=== PATIENT | female | born 1955 | race Caucasian/White ===

== ENCOUNTER 2018-07-27 00:31 | Outpatient (CLI) | payer OTHER, SELFPAY ==
--- NOTE | 2018-07-27 12:52 | DI.MAMMO_ITS ---
SYMPTOM/DIAGNOSIS: SCREENING, Z12.31 MAMMOGRAMS: Mammograms were interpreted according to the usual protocol including computer analysis with CAD system, tomosynthesis and C view imaging. Comparison with prior examinations. Breast density B. No masses or microcalcifications are seen. There is nothing to suggest malignancy. IMPRESSION: Negative mammogram. Routine screening is recommended. Category I. MQSA ASSESSMENT OF FINDINGS: Negative. Category 1. Patient will receive a letter notifying them of these results. BI-RADS category B. There are scattered areas of fibroglandular density.
== END 2018-07-27 00:51 ==
PROVIDERS: PCP Nurse Practitioner Family; Visit Provider Nurse Practitioner Family
DX: Z12.31 Encounter for screening mammogram for malignant neoplasm of breast (principal)
CPT/HCPCS: 77063; 77067

== ENCOUNTER 2019-04-06 10:54 | Outpatient (REF) | payer OTHER, SELFPAY ==
[2019-04-06 21:48] LABS: ALT 39 U/L (12-78); AST 15 U/L (15-37); Anion Gap 9.9 mmol/L (3-11); BUN 17 mg/dL (7-18); CO2 29.1 mmol/L (21.0-32.0); CREATININE 0.72 mg/dL (0.55-1.02); Calcium 10.4 mg/dL (8.5-10.1); Chloride 102 mmol/L (98-107); Glucose 77 mg/dL (70-100); Potassium 4.3 mmol/L (3.5-5.1); Sodium 141 mmol/L (136-145)
[2019-04-06 22:28] LABS: Calculated LDL 138; Cholesterol 220 mg/dL (50-200); HDL Cholesterol 50 mg/dL (40-60); Triglyceride 164 mg/dL (30-150)
== END 2019-04-06 11:14 ==
LOC: NCHCN 10:54
PROVIDERS: PCP Nurse Practitioner Family; Visit Provider Nurse Practitioner Family
DX: R53.83 Other fatigue (principal); E11.9 Type 2 diabetes mellitus without complications; I10 Essential (primary) hypertension; K30 Functional dyspepsia; F41.8 Other specified anxiety disorders; R60.0 Localized edema
CPT/HCPCS: 80048; 80061; 83721; 84450; 84460

== ENCOUNTER 2019-04-27 14:35 | Outpatient (REF) | payer OTHER, SELFPAY ==
[2019-04-27 22:09] LABS: Calcium 9.8 mg/dL (8.5-10.1)
== END 2019-04-27 14:55 ==
LOC: NCHCN 14:35
PROVIDERS: PCP Nurse Practitioner Family; Visit Provider Nurse Practitioner Family
DX: E83.52 Hypercalcemia (principal)
CPT/HCPCS: 82310

== ENCOUNTER 2019-09-07 01:43 | Outpatient (CLI) | payer OTHER, SELFPAY ==
--- NOTE | 2019-09-07 09:40 | NS.NUTBLAN_ITS ---
DESCRIPTION:? Amanda Medina presents for nutrition consult for diverticulitis and diabetes prevention/treatment.? She has history of gall bladder surgery as well.? Treated for hypertension, depression and sleep issues. Amanda states she doesn't know what to eat with the combination of diverticulosis versus diverticulitis and diabetes. Today she had cereal and milk; on work days she has 1 slice whole grain toast with [place] peanutbutter.? She often has a snack mid-morning; for lunch a salad until it seemed to cause her pain, or 1/2 sandwich.? Supper is less predictable with fast food, processed food when she doesn't have to cook a meal.? She drinks 1/2 gallon of water daily, minimum. Amanda describes PTSD from her childhood which she is now dealing with. She recognizes that she uses food to handle some of these symptoms. INTERVENTION:? Reviewed food treatment for diverticulosis versus diverticulitis with information sheets on fiber content of common food choices..? Used diabetes food guide to integrate?the foods that are appropriate for each condition. Discussed benefits of a healthy gut in relation to? probiotics encouraging cutting sugar, processed foods, increasing fruit and vegetables within guidelines for her current condition; increase fermented and active bacteria sources, especially yogurt. Discussed physical activity briefly. Discussed stress management at the moment; she is in counseling for PTSD.? Suggested the importance of this overweighs diabetes management at this time given she is around the 6.5 A1c range; acknowledging there will be time to work on this. PLAN:? Amanda will: follow fiber lists based on her symptoms; overall decrease sugar and processed food intake by planning her meals, using crock pot, adequate vegetable intake Amanda will consider walking 10 minutes at lunch when she can. She knows to be in touch as she wishes for ongoing support.
== END 2019-09-07 02:03 ==
PROVIDERS: PCP Nurse Practitioner Family; Visit Provider Dietitian, Registered
DX: K57.32 Diverticulitis of large intestine without perforation or abscess without bleeding (principal); Z71.3 Dietary counseling and surveillance; R73.03 Prediabetes
CPT/HCPCS: 97802

== ENCOUNTER 2019-11-24 02:25 | Outpatient (CLI) | payer OTHER, SELFPAY ==
--- NOTE | 2019-11-24 11:07 | DI.MAMMO_ITS ---
EXAM: MG MAMMO SCREENING CLINICAL HISTORY: SCREENING Z12.31, FAM HX BREAST CANCER Z80.3. TECHNIQUE: Bilateral full field digital CC and MLO mammographic images were obtained with 3D tomosyn thesis and utilizing computer aided detection (CAD). COMPARISON: Available for comparison. FINDINGS: Masses/Architectural Distortion: There is asymmetric breast tissue in the upper-outer quadrant of the left breast. Microcalcifications: No suspicious pleomorphic-type are seen. Skin Thickening/Nipple Retraction: None. IMPRESSION: 1. Asymmetric breast tissue in the upper-outer quadrant of the left breast. 2. This area should be further evaluated with spot compression views. Ultrasound may be indicated at that time. BI-RADS Cat 0 - Assessment Incomplete: Need additional imaging evaluation Breast Density - Category B - Scattered areas of fibroglandular density A negative radiographic report should not delay biopsy if a dominant or clinically suspicious mass is present. Up to ten percent of cancers are not identified on mammography. A negative report may reinforce clinical impression. Adenosis and dense breasts may obscure an underlying neoplasm. False positive reports average 6 to 10%. Patient will receive a letter notifying them of these results.
== END 2019-11-24 02:45 ==
PROVIDERS: PCP Nurse Practitioner Family; Visit Provider Nurse Practitioner Family
DX: Z12.31 Encounter for screening mammogram for malignant neoplasm of breast (principal); Z80.3 Family history of malignant neoplasm of breast; R92.8 Other abnormal and inconclusive findings on diagnostic imaging of breast
CPT/HCPCS: 77063; 77067

== ENCOUNTER 2019-12-02 02:20 | Outpatient (CLI) | payer OTHER, SELFPAY ==
--- NOTE | 2019-12-02 | DI.MAMMO_ITS ---
EXAM: MG MAMMO SCREEN CALL BACK UNI AND US LT BREAST LIMITED CLINICAL HISTORY: F/U MAMMO, ASYMMETRIC BREAST TISSUE UPPER OUTER QUAD LT BREAST. TECHNIQUE: Craniocaudal and mediolateral oblique Full Field Digital Mammography views of the left br east with Computer Aided Diagnosis followed by Tomosynthesis and left breast ultrasound. COMPARISON: US BREAST LT LIMITED from 12/02/2019 FINDINGS: Mammography/Tomosynthesis: Masses/Architectural Distortion: None seen. Microcalcifications: No suspicious pleomorphic-type are seen. Skin Thickening/Nipple Retraction: None. Left breast US: Echotexture: Normal appearance of the glandular tissue. Shadowing: No suspicious foci. Cyst: 2.6 x 1.9 x 3 mm cyst and 4 x 2.4 x 5 mm cyst at the 12 o'clock position. Solid lesions: 5 x 3 x 5 mm lymph node in the 12 o'clock position 5 centimeters from the nipple. No suspicious solid mass. Ductal dilation: None. IMPRESSION: 1. No evidence of malignancy is noted. 2. A six-month follow-up left mammogram is recommended for re-evaluation. BI-RADS Cat 3 - 6 month - Probably Benign Finding: Recommend follow-up mammography in 6 months Breast Density - Category B - Scattered areas of fibroglandular density The findings were discussed with the patient on the date of the examination. A negative radiographic report should not delay biopsy if a dominant or clinically suspicious mass is present. Up to ten percent of cancers are not identified on mammography. A negative report may reinforce clinical impression. Adenosis and dense breasts may obscure an underlying neoplasm. False positive reports average 6 to 10%. Patient will receive a letter notifying them of these results.
== END 2019-12-02 02:40 ==
PROVIDERS: PCP Nurse Practitioner Family; Visit Provider Nurse Practitioner Family
DX: Z12.31 Encounter for screening mammogram for malignant neoplasm of breast (principal); R92.8 Other abnormal and inconclusive findings on diagnostic imaging of breast; N60.12 Diffuse cystic mastopathy of left breast; R59.0 Localized enlarged lymph nodes
CPT/HCPCS: 76642; 77063; 77067

== ENCOUNTER 2020-06-09 03:58 | Outpatient (CLI) | payer OTHER, SELFPAY ==
--- NOTE | 2020-06-09 | DI.MAMMO_ITS ---
EXAM: MG MAMMO DIAGNOSTIC UNI CLINICAL HISTORY: F/U ABNL MAMMO, 6 MO F/U,R92.8. TECHNIQUE: Craniocaudal and mediolateral oblique Full Field Digital Mammography views of the left br east with Computer Aided Diagnosis followed by Tomosynthesis. COMPARISON: 2010 through 02 December 2019 FINDINGS: Mammography/Tomosynthesis: This is a six-month follow-up for questioned area of asymmetric density in the upper outer quadrant. Masses/Architectural Distortion: None seen. Microcalcifictions: No suspicious pleomorphic-type are seen. Skin Thickening/Nipple Retraction: None. IMPRESSION: 1. No evidence of malignancy is noted. 2. Bilateral screening should be resumed in 6 months.. 3. The findings were discussed with the patient on the date of the examination. BI-RADS Category 1 - Negative Breast Density - Category B - Scattered areas of fibroglandular density A negative radiographic report should not delay biopsy if a dominant or clinically suspicious mass is present. Up to ten percent of cancers are not identified on mammography. A negative report may reinforce clinical impression. Adenosis and dense breasts may obscure an underlying neoplasm. False positive reports average 6 to 10%. Patient will receive a letter notifying them of these results.
== END 2020-06-09 04:18 ==
PROVIDERS: PCP Nurse Practitioner Family; Visit Provider Nurse Practitioner Family
DX: R92.8 Other abnormal and inconclusive findings on diagnostic imaging of breast (principal); R92.2 Inconclusive mammogram
CPT/HCPCS: 77061; 77065; G0279

== ENCOUNTER 2020-09-22 01:59 | Outpatient (CLI) | payer MEDICARE, SELFPAY ==
[2020-09-22 07:30] LABS: Abs Immature Grans 0.02 10^3/uL (0.0-0.06); Absolute Eosinophil Count 0.31 10^3/uL (0.0-0.7); Absolute Lymphocyte Count 2.26 10^3/uL (1.2-3.4); Absolute Monocyte Count 0.59 10^3/uL (0.1-0.8); Absolute Neutrophil Count 3.41 10^3/uL (1.2-6.7); Basophils % 1.5; Eosinophils % 4.6; HCT 42.3 % (36.0-46.0); HGB 14.4 g/dL (11.2-15.7); Immature Grans % 0.3; Lymphocytes % 33.8; MCH 30.8 pg (27.0-33.0); MCV 90.6 fL (80-95); MPV 8.7 fL (8.0-11.0); Monocytes % 8.8; Nucleated RBC 0 %; Platelet Count 356 10^3/uL (130-400); RBC 4.67 10^6/uL (3.93-5.22); RDW 12.1 % (11.7-14.6); WBC 6.69 10^3/uL (4.4-10.8)
[2020-09-22 08:40] LABS: Iron 111 ug/dL (50-170); Total Iron Binding Capacity 325 ug/dL (250-450); Transferrin Sat 34 % (15-50)
[2020-09-22 08:46] LABS: TSH (W/Ref FT4) 0.98 uIU/mL (0.36-3.74)
[2020-09-22 08:48] LABS: Hemoglobin A1C 6.1 % (<5.7)
[2020-09-22 09:08] LABS: ALT 33 U/L (14-59); AST 13 U/L (15-37); Albumin 4.2 g/dL (3.4-5.0); Alkaline Phosphatase 73 U/L (46-116); Anion Gap 6.4 mmol/L (3-11); BUN 22 mg/dL (7-18); Bilirubin, Total 0.5 mg/dL (0.2-1.0); CO2 28.6 mmol/L (21.0-32.0); CREATININE 0.88 mg/dL (0.55-1.02); Calcium 9.3 mg/dL (8.5-10.1); Calculated LDL 141 mg/dL (<100); Chloride 102 mmol/L (98-107); Cholesterol 209 mg/dL (<200); Glucose 114 mg/dL (74-106); HDL Cholesterol 51 mg/dL (40-60); Magnesium 2.2 mg/dL (1.8-2.4); Potassium 4.3 mmol/L (3.5-5.1); Sodium 137 mmol/L (136-145); Total Protein 7.5 g/dL (6.4-8.2); Triglyceride 87 mg/dL (<150); Vitamin B12 758 pg/mL (193-986)
== END 2020-09-22 02:19 ==
PROVIDERS: PCP Nurse Practitioner Family; Visit Provider Nurse Practitioner Family
DX: R53.83 Other fatigue (principal); E11.9 Type 2 diabetes mellitus without complications; I10 Essential (primary) hypertension; Z86.39 Personal history of other endocrine, nutritional and metabolic disease; N95.1 Menopausal and female climacteric states
CPT/HCPCS: 36415; 80053; 80061; 82306; 82607; 83036; 83540; 83550; 83735; 84443; 85025

== ENCOUNTER 2020-10-26 12:17 | Outpatient (REF) | payer MEDICARE, SELFPAY ==
[2020-10-28 11:36] LABS: COVID-19 RT-PCR UVMMC Result Negative (Negative)
== END 2020-10-26 12:37 ==
LOC: NCHCN 12:17
PROVIDERS: PCP Nurse Practitioner Family; Visit Provider Nurse Practitioner Family
DX: Z20.828 Contact with and (suspected) exposure to other viral communicable diseases (principal)
CPT/HCPCS: U0003

== ENCOUNTER → 2021-01-19 14:23 | Outpatient (BNVA) | payer MEDICARE, SELFPAY | PROVIDERS: PCP Nurse Practitioner Family; Referring Provider Nurse Practitioner Family; Visit Provider Physical Therapy Assistant | DX: Z12.11 Encounter for screening for malignant neoplasm of colon (principal) ==

== ENCOUNTER 2021-02-09 02:23 | Outpatient (CLI) | payer MEDICARE, SELFPAY ==
[2021-02-09 11:26] LABS: Source Nasal/Nares
[2021-02-09 13:30] LABS: COVID-19 PCR Negative (Negative)
== END 2021-02-09 02:24 | disposition home or self-care (01) ==
PROVIDERS: PCP Nurse Practitioner Family; Visit Provider Surgery
DX: Z20.822 Contact with and (suspected) exposure to COVID-19 (principal)
CPT/HCPCS: 87635

== ENCOUNTER 2021-02-12 06:19 | Day surgery (SDC) | payer MEDICARE, SELFPAY ==
[2021-02-12 06:23] VITALS: BP 117/70; PULSE 71; RESP 16; TEMP 37.1; O2SAT 96
--- NOTE | 2021-02-12 06:37 | W.COLOREPORT ---
Date of service: 02/12/21 Time of Service: 07: Colonoscopy Report Date of procedure: 02/12/21 Pre-op diagnosis general: Colon Cancer Screening Post-op diagnosis procedure note: other (colorectal polyp, diverticulosis) Procedure: Colonoscopy with polypectomy Surgeon: Selin Saravia Anesthesia Type: General:No Airway (ASA 2/Sarah Hardin CRNA) Estimated blood loss (mL): 3 Pathology: other (AScending colon polyp) Complications: None Disposition: same day Indications: The patient is here for Colonoscopy pre-op. Her last screening was in 2007 and was unremarkable. She has no family history of colon cancer. She has not had any bowel habit changes. -Discussed colonoscopy bowel prep as well as the procedure. Discussed possible complications of the procedure to include bleeding, pain, perforation, missed small lesion/polyp, sore throat, aspiration and adverse reaction to the medications. Questions were answered to patient?s satisfaction. No guarantees were implied or given. Prep: Miralax/Dulcolax Procedure Start Time: :25 Procedure End Time: :55 Retraction Time: 16 minutes Findings: One sessile polyp in the ascending colon <1 cm in size High-diverticulosis Procedure Description: After informed consent was obtained the patient was taken to the procedure room and placed in a left decubitous position. Monitors were applied and a time out was done. The patients name, date of , procedure, allergies to medications and metal in their body was reviewed. The patient was then sedated. Once sedated and comfortable a rectal exam was done. External exam was normal. Internal exam revealed a decreased sphincter tone and no palpable masses. The scope was then introduced and retro-flexed. No internal hemorrhoids, polyps or masses were identified on retro-flexion. The scope was then advanced to the cecum without difficulty. The patient did become bradycardic and so she was given robinal and atropine. The ileocecal valve and appendiceal orifice were identified. The prep was good. The scope was then slowly retracted over 16 minutes back into the rectum. Polyps were removed with cold forceps in the ascending colon. There was high- diverticulosis noted. The scope was removed and the patient was woken up and taken back to Same day surgery in stable condition. The patient tolerated the procedure well and there were no immediate complications. Follow up: The patient should follow up in 5 years unless they develop changes in bowel habits or other new gastrointestinal complaints.
--- NOTE | 2021-02-12 06:38 | W.PM.DSUDISC ---
Discharge Plan Disposition Patient Disposition: HOME Condition: Good Discharge Details Reason For Visit: Colonoscopy Attending Provider: Selin Saravia Primary Care Provider: Haydee Lr Home Meds and New Rx's Prescriptions: Continued losartan 100 MG tablet 100 mg PO DAILY RF: 0 bupropion HCl [Wellbutrin SR] 100 MG tablet extended release 12 hr 100 mg PO DAILY RF: 0 aspirin [Adult Low Dose Aspirin] 81 mg tablet,delayed release (DR/EC) 81 mg PO DAILY RF: 0 cholecalciferol (vitamin D3) 10,000 unit capsule 10,000 unit PO DAILY RF: 0 loratadine [Claritin] 10 mg tablet 10 mg PO DAILY RF: 0 zolpidem [Ambien] 5 mg tablet 5 mg PO QHS PRNRF: 0 spironolactone [Aldactone] 50 mg tablet 50 mg PO DAILY RF: 0 fluticasone propionate 50 mcg/actuation spray,suspension 2 spray NICHOLAS DAILY RF: 0 ascorbate calcium (vitamin C) 500 mg tablet 500 mg PO DAILY RF: 0 benzonatate [Tessalon Perles] 100 mg capsule 100 mg PO TID RF: 0 diltiazem HCl 300 MG capsule,extended release 24hr 240 mg PO DAILY RF: 0 albuterol sulfate 8.5 GM HFA aerosol inhaler 2 puff Inhalation Q4H PRN PRNRF: 0 fluoxetine [Prozac] 10 mg capsule 10 mg PO DAILY RF: 0 Discontinued bisacodyl [Dulcolax (bisacodyl)] 5 mg tablet,delayed release (DR/EC) 5 mg PO ONCE Qty: 4 RF: 0 polyethylene glycol 3350 17 gram/dose powder 238 g PO ONCE Qty: 238 RF: 0 Discharge Instructions Instructions: Diverticulosis (DC), Colorectal Polyps (DC) Additional Instructions: Findings: 1 polyp mild diverticulosis Follow up: 5 years Please call if you develop: fevers >101.5 Nausea or Vomiting Abdominal pain that is not transient DAY SURGERY UNIT POST ENDOSCOPY INSTRUCTIONS 1. Because there will be medication in your system for the next 24 hours, you may feel a little sleepy. Your coordination will be affected. Therefore: a. Do not drive or operate dangerous equipment for 24 hours. b. Do not drink alcohol beverages for 24 hours (not even beer). c. Plan to go home and rest for the day. 2. Generally there are no restrictions on your activity after a day or so has gone by, but you may feel a bit fatigued for a few days. 3 After you arrive home you may have a light meal and return to a normal diet as you can tolerate it without feeling sick to your stomach. 4. After surgery, you may feel pain or discomfort. This should be only transient, but if it persists please contact your doctor. 5. If there are any questions regarding the findings of your procedure, please feel free to contact your doctor. 6. If you are unable to contact your doctor with a problem, contact the hospital at [phone]. 7. Continue all your regular medications unless directed otherwise. I understand the above instructions and have no questions. Signature of Patient or Responsible Adult Escort Date/Time Name of Responsible Adult Escort Signature of Nurse Date/Time Activity:: Activity as Tolerated Diet:: High Fiber diet Discharge Orders Discharge Orders: Discharge Order (Routine); Ordered 02/12/21 Ordered By: Selin Saravia
--- NOTE | 2021-02-12 06:46 | W.ANESPRE ---
Anesthesia Assessment and Plan Anesthesia History Personal History: PONV Family History: No Family History of Anesthesia Complications Exercise Tolerance Exercise Tolerance: Metabolic Equivalents>4 Pertinent Negatives Pertinent Negatives: No Major Cardiovascular Symptoms or Complaints Cardiac & Pulmonary Exam Cardiac Exam: Normal S1/S2 Heart Sounds Pulmonary Exam: Clear Bilateral Breath Sounds Airway Exam Known Difficult Airway: No Mallampati Class: 4 Mouth Opening: Normal (> 3cm) Thyromental Distance: Greater than 3 cm Neck Range of Motion: Full ROM Neck Circumference: Thick Teeth Condition: Normal Dentition ASA Classification ASA Score: ASA 2 ASA Emergency: No NPO Status NPO Status: NPO Clears >2 hours, Solids >8 hours Status Status: Not Per Patient Anesthesia Plan Anesthesia Technique: General Anesthesia Airway Planned: Natural Airway Monitors Used: Standard Monitors Imaging and Studies Imaging and Studies Pulmonary Function Summary Isolated mildly elevated diffusion capacity. This can be seen in early developing asthma, therefore if the diagnosis of asthma is in question proceeding with methacholine challenge testing may prove to be useful. 09/15/17 General Info Date of Service This is a Shared Provider Document. All providers who document on this will be required to sign document once completed. Please Communicate with Team Date Performed: 02/12/21 Height: 4 ft 11.84 in Weight: 79.4 kg Body Mass Index (BMI): 34.3 Surgical Procedure: Operation Date: 02/12/21 07:35 Proposed Procedures Side Surgeon meli Saravia MD Vital Signs and Lab Results Vital Signs Most Recent Vital Signs in EMR: Most Recent Vital Signs Temp Pulse Resp BP Pulse Ox 37.1 C 71 16 117/70 96 02/12/21 06:23 02/12/21 06:23 02/12/21 06:23 02/12/21 06:23 02/12/21 06:23 Point of Care Results Nursing Point of Care Results: No Data to Display Lab Results Blood Type / Crossmatch: No Data to Display Complete Blood Count: White Blood Count 6.69 10^3/uL (4.4-10.8) 09/22/20 07:21 09/22/20 Red Blood Count 4.67 10^6/uL (3.93-5.22) 09/22/20 07:21 09/22/20 Hemoglobin 14.4 g/dL (11.2-15.7) 09/22/20 07:21 09/22/20 Hematocrit 42.3 % (36.0-46.0) 09/22/20 07:21 09/22/20 Platelet Count 356 10^3/uL (130-400) 09/22/20 07:21 09/22/20 Complete Metabolic Panel: Sodium Level 137 mmol/L (136-145) 09/22/20 07:21 09/22/20 Potassium Level 4.3 mmol/L (3.5-5.1) 09/22/20 07:21 09/22/20 Chloride Level 102 mmol/L (98-107) 09/22/20 07:21 09/22/20 Carbon Dioxide Level 28.6 mmol/L (21.0-32.0) 09/22/20 07:21 09/22/20 Blood Urea Nitrogen 22 mg/dL (7-18) H 09/22/20 07:21 09/22/20 Creatinine 0.88 mg/dL (0.55-1.02) 09/22/20 07:21 09/22/20 Magnesium Level 2.2 mg/dL (1.8-2.4) 09/22/20 07:21 09/22/20 Calcium Level 9.3 mg/dL (8.5-10.1) 09/22/20 07:21 09/22/20 Albumin 4.2 g/dL (3.4-5.0) 09/22/20 07:21 09/22/20 Glucose Level 114 mg/dL (74-106) H 09/22/20 07:21 09/22/20 Hemoglobin A1c 6.1 % (<5.7) H 09/22/20 07:21 09/22/20 C-Reactive Protein 0.60 mg/dL (0.0-0.3) H 04/05/17 09:47 04/05/17 Liver Function Panel: Alanine Aminotransferase (ALT/SGPT) 33 U/L (14-59) 09/22/20 07:21 09/22/20 Aspartate Amino Transf (AST/SGOT) 13 U/L (15-37) L 09/22/20 07:21 09/22/20 Coagulation Panel: No Data to Display Cardiac Panel: Troponin I < 0.04 ng/mL (0.00-0.06) 10/05/13 18:35 10/05/13 Arterial Blood Gas: No Data to Display Venous Blood Gas: No Data to Display Pancreas Panel: No Data to Display Thyroid Panel: Thyroid Stimulating Hormone (TSH) 0.98 uIU/mL (0.36-3.74) 09/22/20 07:21 09/22/20 Infectious Disease: Coronavirus (COVID-19)(PCR) Negative (Negative) 02/09/21 09:55 02/09/21 Coronavirus 2019 Source Nasal/nares 02/09/21 09:55 02/09/21 Blood Cultures: Blood Culture Toxicology Panel: No Data to Display Panel: No Data to Display PFSH Medical History Allergic rhinitis Ankle edema Anxiety associated with depression Apnea, sleep Asthma BMI 35.0-35.9,adult Diabetes mellitus Diverticulitis Dyspepsia Dysthymia has used Wellbutrin for years. Family history of breast cancer Hypercalcemia Hypertension Malaise and fatigue Osteoarthritis of carpometacarpal (CMC) joint of left thumb Psoriasis PTSD (post-traumatic stress disorder) Syncope Vaginal atrophy Vitiligo Surgical History Abdominal hysterectomy (~1960) for uterine fibroids. with ovarian conservation. Dr. Hansen. section 1979 Dilation and curettage History of cataract extraction History of hysterectomy Social History (Updated 01/22/21 @ 10:14 by ALIX Scales) Smoking/Tobacco Use Status: Never Smoking risk assessment performed?: Yes Alcohol Intake: current Alcohol Intake frequency: holidays/special occasions only Drug use: Never Substance use type: does not use Current gender identity: female Do you feel safe at home: Yes Do you feel safe in your relationship?: Yes Meds Allergies and Home Medications Allergies Allergy/AdvReac Type Severity Reaction Status Date / Time aripiprazole [From Abilify] Allergy Severe Syncope Unverified 02/09/21 08:04 and hypotension Penicillins Allergy Severe seizures Unverified 02/09/21 08:04 Current Visit Medication Generic Name Dose Route Start Last Admin Trade Name Freq PRN Reason Stop Dose Admin Hyoscyamine Sulfate 0.125 mg 02/12/21 06:40 Hyoscyamine 0.125 Mg Sl/Oral/Chew SL DIRECTED PRN Ringer's Solution 1,000 mls @ 80 mls/hr 02/12/21 06:00 02/12/21 06:52 IV 03/11/21 23:59 80 mls/hr INFUSION WILLY Administration IV Miscellaneous Supplies 1 each 02/12/21 06:00 Iv Access IV 03/11/21 23:59 DIRECTED WILLY Ondansetron HCl 4 mg 02/12/21 06:40 Ondansetron 4 Mg/2 Ml Vial IVP Q4H PRN PRN Nausea / Vomiting Sodium Chloride 0 ml 02/12/21 06:00 Normal Saline Flush 10 Ml Syr IV 03/11/21 23:59 PRN PRN Sodium Chloride 0 ml 02/12/21 06:00 Normal Saline 10 Ml Vial IJ 03/11/21 23:59 DIRECTED PRN Sterile Water 0 ml 02/12/21 06:00 Water,Injection,Sterile 10 Ml Vial IJ 03/11/21 23:59 DIRECTED PRN Home Medication Medication Instructions Recorded albuterol sulfate 2 puff INHALATION Q4H PRN PRN 10/05/13 diltiazem HCl 240 mg PO DAILY 10/05/13 losartan 100 mg PO DAILY tab-cap 02/13/16 bupropion HCl [Wellbutrin SR] 100 mg PO DAILY 03/26/16 ascorbate calcium (vitamin C) 500 500 mg PO DAILY 09/14/19 mg tablet aspirin 81 mg tablet,delayed 81 mg PO DAILY 09/14/19 release cholecalciferol (vitamin D3) 250 10,000 unit PO DAILY 09/14/19 mcg (10,000 unit) capsule fluticasone propionate 50 2 spray NICHOLAS DAILY 09/14/19 mcg/actuation nasal spray,suspension loratadine 10 mg tablet 10 mg PO DAILY 09/14/19 spironolactone 50 mg tablet 50 mg PO DAILY 09/14/19 zolpidem 5 mg tablet 5 mg PO QHS PRN 09/14/19 benzonatate 100 mg capsule 100 mg PO TID 08/25/20 fluoxetine [Prozac] 10 mg PO DAILY 02/09/21
[2021-02-12] MEDS: Lactated Ringers 1,000 ML 80 ML IV (06:52)
[2021-02-12 07:10] VITALS: BMI 34.3
--- NOTE | 2021-02-12 07:39 | BOWEL_PTH ---
PATIENT: Amanda Medina LOC: [facility] U#:[id number] AGE/SX: 65/F ROOM: RE02/12/[address]: Selin Saravia MD : 1955 BED: DIS: 02/12/2021 SPEC #: [id number] RECD: 02/12/21 12:40 STATUS: ANTONIO REQ #: [id number] CHILO: 02/12/21 07:[address]: Selin Saravia DEPT: Surgical Specimen RECD BY: Jina Sebastian ENTERED: 02/12/21 12:40 SP TYPE: Bowel OTHR DR: Haydee Lr Tissues: 1 - BIOPSY BOWEL Procedures: GROSS AND MICRO LEVEL 4 Comments: [id number]
--- NOTE | 2021-02-12 08:17 | W.ANESPOSTOP ---
Postoperative Evaluation Date, Time and Location Date Performed: 02/12/21 Time Performed: 08:17 Patient Location: Day Surgery Unit Vital Signs Most Recent Imported Vital Signs: Most Recent Vital Signs Temp Pulse Resp BP Pulse Ox 37.1 C 71 16 117/70 96 02/12/21 06:23 02/12/21 06:23 02/12/21 06:23 02/12/21 06:23 02/12/21 06:23 Most Recent Manually Entered Vital Signs: Adult Blood Pressure: 88/47 Heart Rate: 84 Respirations: 16 Oxygen Saturation (%): 95 Temperature (C): 36.6 C Pain Score (0-10 Scale): 0 Assessment Mental Status: Awake (Alert & Oriented to Patient Baseline) Airway and Respiratory Function: Patent airway with normal (patient baseline) respiratory exam Cardiovascular Function: Hemodynamically Stable Hydration Status: Adequately Hydrated Nausea & Vomiting: No Nausea or Vomiting Pain: Pt. Denies Any Pain Peripheral Nerve Block: Patient did not receive a nerve block Teaching Patient Teaching: Other
[2021-02-12 08:20] VITALS: BP 88/47; PULSE 84; RESP 16; TEMPC 36.6; O2SAT 95
[2021-02-12 08:30] VITALS: BP 113/68; PULSE 80; RESP 16; TEMP 36.6; O2SAT 96
== END 2021-02-12 08:55 | disposition home or self-care (01) ==
PROVIDERS: PCP Nurse Practitioner Family; Visit Provider Surgery
PROC: 0DJD8ZZ Inspection of Lower Intestinal Tract, Via Natural or Artificial Opening Endoscopic (ICD-10-PCS; CPT 45378; principal; 2021-02-12 07:30)
DX: Z12.11 Encounter for screening for malignant neoplasm of colon (principal); D12.2 Benign neoplasm of ascending colon; K57.30 Diverticulosis of large intestine without perforation or abscess without bleeding
CPT/HCPCS: 45380; 88305; J2001; J2405

== ENCOUNTER 2021-02-23 04:16 | Outpatient (CLI) | payer MEDICARE, SELFPAY ==
--- NOTE | 2021-02-23 | DI.MAMMO_ITS ---
Exam(s) MAMMO SCREENING EXAM: MAMMO SCREENING CLINICAL HISTORY: SCREENING,Z12.31, H/O ABNL MAMMO, R92.8,FAMILY H/O BREAST CA,Z80.3 TECHNIQUE: Bilateral full field digital CC and MLO mammographic images were obtained with 3D tomosyn thesis and utilizing computer aided detection (CAD). COMPARISON: Available for comparison. FINDINGS: Masses/Architectural Distortion: None seen. Microcalcifications: No suspicious pleomorphic-type are seen. Skin Thickening/Nipple Retraction: None. IMPRESSION: 1. No significant interval change with no specific features of malignancy noted. 2. Unless there is more urgent need, screening mammography is recommended, as per [place] [employer] guidelines. BI-RADS Category 1 - Negative Breast Density - Category B - Scattered areas of fibroglandular density Breast density category C or D implies that the patient has dense breast tissue. Dense breast tissue is very common and is not abnormal but dense breast tissue can make it harder to find cancer on a ma mmogram. Also, dense breast tissue may increase their breast cancer risk. This information about the result of the mammogram report was provided to the patient to raise their awareness. Use this report when you speak with the patient about their risks for breast cancer, which includes their family hist ory. At that time, you may recommend for more screening tests (Ultrasound or MRI) as they might be us eful based on their risk. A negative radiographic report should not delay biopsy if a dominant or clinically suspicious mass is present. Up to ten percent of cancers are not identified on mammography. A negative report may reinforce clinical impression. Adenosis and dense breasts may obscure an underlying neoplasm. False positive reports average 6 to 10%. Patient will receive a letter notifying them of these results.
== END 2021-02-23 04:36 ==
PROVIDERS: PCP Nurse Practitioner Family; Visit Provider Nurse Practitioner Family
DX: Z12.31 Encounter for screening mammogram for malignant neoplasm of breast (principal); Z80.3 Family history of malignant neoplasm of breast
CPT/HCPCS: 77063; 77067

== ENCOUNTER 2021-04-24 02:57 | Outpatient (CLI) | payer MEDICARE, SELFPAY ==
--- NOTE | 2021-04-24 | DI.DEXA_ITS ---
Exam(s) XR DEXA BONE DENSITY W/WO BRENT EXAM: XR DEXA BONE DENSITY W/WO BRENT CLINICAL HISTORY: OTHER DISORDER OF BONE DENSITY, M85.88 TECHNIQUE: COMPARISON: No exams were available for comparison FINDINGS: Lateral Spine Image: Unremarkable. No compression deformities identified. Left hip: Total T-Score: 1.0 Total Z-Score: 2.3 T- and Z-scores: Within normal limits. Lumbar Spine: Total T-Score: -0.1 Total Z-Score: 1.7 T- and Z-scores: Within normal limits. IMPRESSION: No evidence of osteoporosis.
== END 2021-04-24 03:17 ==
PROVIDERS: PCP Nurse Practitioner Family; Visit Provider Nurse Practitioner Family
DX: M85.88 Other specified disorders of bone density and structure, other site (principal)
CPT/HCPCS: 77080

== ENCOUNTER 2021-08-06 12:49 | Outpatient (CLI) | payer MEDICARE, SELFPAY ==
[2021-08-06 13:48] VITALS: BP 123/73; PULSE 74; RESP 20; TEMP 36.3; O2SAT 98
[2021-08-06] MEDS: Normal Saline 500 ML 30 ML IV (13:59)
[2021-08-06 14:04] VITALS: BP 120/72; PULSE 72; RESP 18; TEMP 36.8; O2SAT 96
[2021-08-06 15:04] VITALS: BP 114/68; PULSE 65; RESP 16; TEMP 37.9; O2SAT 96
[2021-08-06 15:23] VITALS: BP 112/72; PULSE 64; TEMP 36.8; O2SAT 96
== END 2021-08-06 12:50 | disposition home or self-care (01) ==
LOC: INF 12:50
PROVIDERS: PCP Nurse Practitioner Family; Visit Provider Family Medicine
DX: U07.1 COVID-19 (principal)
CPT/HCPCS: 96365

== ENCOUNTER 2021-09-28 15:10 | Outpatient (REF) | payer MEDICARE, SELFPAY ==
[2021-09-28 14:11] LABS: ALT 35 U/L (14-59); AST 11 U/L (15-37); Albumin 4.1 g/dL (3.4-5.0); Alkaline Phosphatase 78 U/L (46-116); Anion Gap 10.2 mmol/L (3-11); BUN 14 mg/dL (7-18); Bilirubin, Total 0.4 mg/dL (0.2-1.0); CO2 28.8 mmol/L (21.0-32.0); CREATININE 0.7 mg/dL (0.55-1.02); Calcium 9.5 mg/dL (8.5-10.1); Calculated LDL 121 mg/dL (<100); Chloride 99 mmol/L (98-107); Cholesterol 197 mg/dL (<200); Glucose 104 mg/dL (74-106); HDL Cholesterol 53 mg/dL (40-60); Potassium 4.4 mmol/L (3.5-5.1); Sodium 138 mmol/L (136-145); Total Protein 7.4 g/dL (6.4-8.2); Triglyceride 115 mg/dL (<150)
== END 2021-09-28 15:11 | disposition home or self-care (01) ==
LOC: NCHCN 15:10
PROVIDERS: PCP Nurse Practitioner Family; Visit Provider Nurse Practitioner Family
DX: I10 Essential (primary) hypertension (principal); R53.83 Other fatigue; R73.03 Prediabetes
CPT/HCPCS: 80053; 80061

== ENCOUNTER 2021-10-05 03:51 | Outpatient (CLI) | payer MEDICARE, SELFPAY ==
[2021-10-05] MEDS: Methacholine 100 MG VIAL IH (11:53)
[2021-10-05] MEDS: Inhaler, Assist Device 1 EACH MC (11:53)
[2021-10-05] MEDS: Albuterol HFA 18 GM 200 PUFF INH IH (11:54)
--- NOTE | 2021-10-05 13:27 | W.PFT ---
Date of service: 10/05/21 Time of Service: 10:12 Pulmonary Function Test Result Requesting Provider Haydee Lr Indications: Asthma, wheezing Interpretation Spirometry: Baseline spirometry shows no airflow limitation. The methacholine challenge test was strongly positive (20% drop in FEV1 with only 0.5mg/mL methacholine) Impression Strongly positive methacholine challenge test. Clinical Correlation therefore is recommended.
--- NOTE | 2021-10-05 13:33 | W.PFT ---
Date of service: 10/05/21 Time of Service: 10:12 Pulmonary Function Test Result Requesting Provider Haydee Lr Indications: Asthma, wheezing Interpretation Spirometry: No airflow limitation. Lung Volumes: Lung volumes are normal Diffusion Capacity: Diffusion is normal Airway Pressure: Airways resistance is normal. Impression Normal pulmonary function test Clinical Correlation therefore is recommended.
== END 2021-10-05 03:52 | disposition home or self-care (01) ==
PROVIDERS: PCP Nurse Practitioner Family; Visit Provider Nurse Practitioner Family
DX: J45.909 Unspecified asthma, uncomplicated (principal); R94.2 Abnormal results of pulmonary function studies
CPT/HCPCS: 94060; 94726; 94729; 95070; 94010; J7674

== ENCOUNTER 2022-02-22 23:55 | Outpatient (REF) | payer MEDICARE, SELFPAY ==
[2022-02-22 14:37] LABS: Abs Immature Grans 0.04 10^3/uL (0.0-0.06); Absolute Basophil Count 0.12 10^3/uL (0.0-0.2); Absolute Eosinophil Count 0.16 10^3/uL (0.0-0.7); Absolute Lymphocyte Count 2.07 10^3/uL (1.2-3.4); Absolute Monocyte Count 0.65 10^3/uL (0.1-0.8); Absolute Neutrophil Count 4.21 10^3/uL (1.2-6.7); Basophils % 1.7; Eosinophils % 2.2; HCT 38.9 % (36.0-46.0); Immature Grans % 0.6; Lymphocytes % 28.6; MCH 30.9 pg (27.0-33.0); MCHC 33.4 % (32.0-36.0); MCV 92 fL (80-95); MPV 9.4 fL (8.0-11.0); Neutrophils % 57.9; Platelet Count 336 10^3/uL (130-400); RBC 4.21 10^6/uL (3.93-5.22); RDW 12.4 % (11.7-14.6); WBC 7.25 10^3/uL (4.4-10.8)
[2022-02-25 12:14] LABS: IgE 61 IU/mL (<158)
[2022-02-25 14:16] LABS: Cat Epithelium IgE <0.35 kU/L; Cedar, IgE <0.35 kU/L; Cockroach IgE <0.35 kU/L; Dog Dander IgE 1.89 kU/L; False Ragweed, IgE <0.35 kU/L; Giant Ragweed IgE <0.35 kU/L; Goldenrod IgE <0.35 kU/L; House Dust/Greer Lab, IgE 0.86 kU/L; Oak IgE <0.35 kU/L; Short Ragweed IgE <0.35 kU/L; Silver Birch IgE <0.35 kU/L; Timothy Grass IgE <0.35 kU/L
== END 2022-02-22 23:56 | disposition home or self-care (01) ==
LOC: LBN 23:55
PROVIDERS: PCP Nurse Practitioner Family; Visit Provider Student in an Organized Health Care Education/Training Program
DX: J45.909 Unspecified asthma, uncomplicated (principal)
CPT/HCPCS: 82785; 85025; 86003

== ENCOUNTER → 2022-04-08 01:45 | Outpatient (CLI) | payer MEDICARE, SELFPAY ==
--- NOTE | 2022-04-08 | DI.MAMMO_ITS ---
Exam(s) MAMMO SCREENING EXAM: MAMMO SCREENING CLINICAL HISTORY: SCREENING, Z12.31, FAM HX BREAST CA, Z80.3 TECHNIQUE: Bilateral full field digital CC and MLO mammographic images were obtained with 3D tomosyn thesis and utilizing computer aided detection (CAD). COMPARISON: Available for comparison. FINDINGS: Masses/Architectural Distortion: There is a focal asymmetry in the inferior left breast on the MLO vi ew. This area should be further evaluated with a spot compression view. Microcalcifications: No suspicious pleomorphic-type are seen. Skin Thickening/Nipple Retraction: None. IMPRESSION: 1. Focal asymmetry in the inferior left breast on the MLO view. 2. This area should be evaluated with a spot compression view. Ultrasound may be indicated at that t candis. BI-RADS Category 0 - Assessment Incomplete: Need additional imaging evaluation Breast Density - Category B - Scattered areas of fibroglandular density Breast density category C or D implies that the patient has dense breast tissue. Dense breast tissue is very common and is not abnormal but dense breast tissue can make it harder to find cancer on a ma mmogram. Also, dense breast tissue may increase their breast cancer risk. This information about the result of the mammogram report was provided to the patient to raise their awareness. Use this report when you speak with the patient about their risks for breast cancer, which includes their family hist ory. At that time, you may recommend for more screening tests (Ultrasound or MRI) as they might be us eful based on their risk. A negative radiographic report should not delay biopsy if a dominant or clinically suspicious mass is present. Up to ten percent of cancers are not identified on mammography. A negative report may reinforce clinical impression. Adenosis and dense breasts may obscure an underlying neoplasm. False positive reports average 6 to 10%. Patient will receive a letter notifying them of these results.
== END ==
PROVIDERS: PCP Nurse Practitioner Family; Visit Provider Nurse Practitioner Family
DX: Z12.31 Encounter for screening mammogram for malignant neoplasm of breast (principal); Z80.3 Family history of malignant neoplasm of breast; R92.8 Other abnormal and inconclusive findings on diagnostic imaging of breast
CPT/HCPCS: 77063; 77067

== ENCOUNTER → 2022-04-17 01:14 | Outpatient (CLI) | payer MEDICARE, SELFPAY ==
--- NOTE | 2022-04-17 | DI.US_ITS ---
Exam(s) MG MAMMO SCREEN CALL BACK UNI US BREAST LT LIMITED EXAM: US BREAST LT LIMITED CLINICAL HISTORY: F/U ABNL MAMMO TECHNIQUE: Ultrasound performed using standard protocol. COMPARISON: US US BREAST LT LIMITED from 12/02/2019 FINDINGS: Additional mammographic views of the left breast and left breast ultrasound are interpreted conjuncti on. Recent mammogram showed a well-circumscribed 6 millimeter x 3 millimeter nodule in the medial as pect of the left breast. This is confirmed on CC and MLO spot compression views. Breast ultrasound shows a well-circumscribed predominantly anechoic lesion with a few minimal internal echoes in a loca tion corresponding to the mammographic abnormality in the 9 o'clock position 6 cm from the nipple. F indings are consistent with benign disease. Neoplastic disease not absolutely excluded, follow-up ma mmogram recommended in 12 months. IMPRESSION: BI-RADS Cat 2 - Benign Findings Breast Density - Category C - Heterogeneously dense DATA REPOSITORY:
== END ==
PROVIDERS: PCP Nurse Practitioner Family; Visit Provider Nurse Practitioner Family
DX: Z12.31 Encounter for screening mammogram for malignant neoplasm of breast (principal); R92.8 Other abnormal and inconclusive findings on diagnostic imaging of breast; N60.82 Other benign mammary dysplasias of left breast
CPT/HCPCS: 76642; 77063; 77067

== ENCOUNTER 2022-10-02 11:12 | Outpatient (CLI) | payer MEDICARE, SELFPAY ==
--- NOTE | 2022-10-02 11:13 | DI.RAD_ITS ---
Exam(s) XR SHOULDER RT COMPLETE 2+V EXAM: XR SHOULDER RT COMPLETE 2+V CLINICAL HISTORY: right shoulder pain. TECHNIQUE: 2D digital imaging was performed of the right shoulder. Two images were obtained. AP an d axillary views were obtained. COMPARISON: No exams were available for comparison FINDINGS: BONES: No acute fracture is present. No bony destructive lesion is seen. JOINTS: No dislocation present. There are mild degenerative changes seen at the acromioclavicular angie nt the glenohumeral joint is well maintained. SOFT TISSUE: Normal. IMPRESSION: Mild degenerative changes of the AC joint. DATA REPOSITORY: RADIATION DOSE DELIVERED:
== END 2022-10-02 11:13 | disposition home or self-care (01) ==
LOC: DIORS 11:12
PROVIDERS: PCP Nurse Practitioner Family; Referring Provider Nurse Practitioner Family; Visit Provider Physician Assistant
DX: M19.011 Primary osteoarthritis, right shoulder (principal); M75.21 Bicipital tendinitis, right shoulder; M75.101 Unspecified rotator cuff tear or rupture of right shoulder, not specified as traumatic
CPT/HCPCS: 99203; 99213; 73030

== ENCOUNTER 2022-10-03 17:22 | Outpatient (REF) | payer MEDICARE, SELFPAY ==
[2022-10-03 14:56] LABS: ALT 61 U/L (14-59); AST 21 U/L (15-37); Albumin 4.1 g/dL (3.4-5.0); Alkaline Phosphatase 92 U/L (46-116); Anion Gap 9.6 mmol/L (3-11); BUN 10 mg/dL (7-18); Bilirubin, Total 0.5 mg/dL (0.2-1.0); CO2 29.4 mmol/L (21.0-32.0); CREATININE 0.8 mg/dL (0.55-1.02); Calcium 9.7 mg/dL (8.5-10.1); Calculated LDL 119 mg/dL (<100); Chloride 100 mmol/L (98-107); Cholesterol 205 mg/dL (<200); Estimated GFR 80.71 (mL/min/1.73m2); Glucose 203 mg/dL (74-106); HDL Cholesterol 52 mg/dL (40-60); Potassium 3.9 mmol/L (3.5-5.1); Sodium 139 mmol/L (136-145); Total Protein 8.1 g/dL (6.4-8.2); Triglyceride 171 mg/dL (<150)
== END 2022-10-03 17:23 | disposition home or self-care (01) ==
LOC: NCHCN 17:22
PROVIDERS: PCP Nurse Practitioner Family; Visit Provider Nurse Practitioner Family
DX: E11.9 Type 2 diabetes mellitus without complications (principal); K30 Functional dyspepsia; R53.83 Other fatigue; I10 Essential (primary) hypertension; E66.9 Obesity, unspecified; J45.30 Mild persistent asthma, uncomplicated; G47.30 Sleep apnea, unspecified
CPT/HCPCS: 80053; 80061

== ENCOUNTER 2022-10-25 00:15 | Outpatient (CLI) | payer MEDICARE, SELFPAY ==
--- NOTE | 2022-10-25 07:45 | DI.MRI_ITS ---
Exam(s) MR UPPER JOINT RT WO EXAM: MR UPPER JOINT RT WO CLINICAL HISTORY: R SHOULDER PAIN,ARTHRITIS RT AC JOINT,RT RTC TEAR,TENDONINITIS. TECHNIQUE: Multiplanar multisequence MRI was performed. COMPARISON: Plain films October 10 FINDINGS: BONES: There is no fracture or contusion pattern. JOINTS:The acromioclavicular joint shows mild spurring but no evidence of impingement. The glenohume ral joint is normal. TENDONS: Supraspinatus: Small amount of surrounding fluid but no visible tear. Infraspinatus: Thickening and high signal in the infraspinatus tendon consistent with tendinitis. U nderlying subchondral cysts in the humeral head. Subscapularis: Unremarkable. Teres Minor: Unremarkable. Biceps and Andrews: Unremarkable. MUSCLES: Unremarkable. GLENOID LABRUM: Unremarkable on this noncontrast examination. SOFT TISSUES: Unremarkable. OTHER: Subacromial and subdeltoid bursae show minimal fluid. IMPRESSION: Infraspinatus tendinitis. DATA REPOSITORY:
== END 2022-10-25 00:35 ==
PROVIDERS: PCP Nurse Practitioner Family; Visit Provider Student in an Organized Health Care Education/Training Program
DX: M25.511 Pain in right shoulder (principal); M19.011 Primary osteoarthritis, right shoulder; M75.21 Bicipital tendinitis, right shoulder
CPT/HCPCS: 73221

== ENCOUNTER → 2022-10-30 12:54 | Outpatient (BNVA) | payer MEDICARE, SELFPAY | PROVIDERS: PCP Nurse Practitioner Family; Referring Provider Nurse Practitioner Family; Visit Provider Student in an Organized Health Care Education/Training Program | DX: M75.21 Bicipital tendinitis, right shoulder (principal); M75.101 Unspecified rotator cuff tear or rupture of right shoulder, not specified as traumatic; M19.011 Primary osteoarthritis, right shoulder | CPT/HCPCS: 20610; 99213; J1030 ==

== ENCOUNTER → 2023-01-07 08:27 | Outpatient (BNVA) | payer MEDICARE, SELFPAY | PROVIDERS: PCP Nurse Practitioner Family; Referring Provider Nurse Practitioner Family; Visit Provider Student in an Organized Health Care Education/Training Program | DX: M19.011 Primary osteoarthritis, right shoulder (principal); M75.21 Bicipital tendinitis, right shoulder; M75.101 Unspecified rotator cuff tear or rupture of right shoulder, not specified as traumatic | CPT/HCPCS: 99213 ==

== ENCOUNTER → 2023-03-04 08:28 | Outpatient (BNVA) | payer MEDICARE, SELFPAY | PROVIDERS: PCP Nurse Practitioner Family; Referring Provider Nurse Practitioner Family; Visit Provider Student in an Organized Health Care Education/Training Program | DX: M19.011 Primary osteoarthritis, right shoulder (principal); M75.101 Unspecified rotator cuff tear or rupture of right shoulder, not specified as traumatic; M75.21 Bicipital tendinitis, right shoulder | CPT/HCPCS: 99214 ==

== ENCOUNTER 2023-03-14 08:20 | Day surgery (SDC) | payer MEDICARE, SELFPAY ==
[2023-03-14] VITALS (12 sets, daily range): BP systolic 87–132; BP diastolic 33–72; PULSE 54–78; RESP 14–20; TEMP 36.1–36.7; O2SAT 92–97; BMI 36.8
--- NOTE | 2023-03-14 07:15 | W.PM.DSUDISC ---
Date of service: 03/14/23 Time of Service: 11:00 Discharge Plan Discharge Details Attending Provider: Mati Whitney Primary Care Provider: Haydee Lr Home Meds and New Rx's Prescriptions: New naproxen 250 mg tablet 250 - 500 mg PO BID PRNQty: 40 0RF Rx Instructions: take with a meal oxycodone 5 mg tablet 5 - 10 mg PO Q4H MDD 30 mg PRN (Reason: moderate to severe pain) Qty: 18 0RF Continued levalbuterol tartrate 45 mcg/actuation HFA aerosol inhaler 2 inh inhalation ONCE PRN acetylcysteine [NAC] 600 mg capsule 600 mg PO DAILY zinc sulfate 50 mg zinc (220 mg) tablet 50 mg PO DAILY vitamin C-echinacea purp.-hb11 500 mg tablet 1 tab PO DAILY multivitamin Tablet 1 tab PO DAILY aspirin 81 mg tablet,delayed release (DR/EC) 81 mg PO DAILY Spiriva Respimat 1.25 mcg/actuation mist 2 puff inhalation DAILY Qty: 3 12RF metformin 1,000 mg tablet 1,000 mg PO DAILY bupropion HCl [Wellbutrin SR] 100 MG tablet extended release 12 hr 100 mg PO DAILY spironolactone [Aldactone] 50 mg tablet 50 mg PO DAILY fluticasone propionate 50 mcg/actuation spray,suspension 2 spray NICHOLAS DAILY budesonide-formoterol [Symbicort] 160-4.5 mcg/actuation HFA aerosol inhaler See Rx Instructions .ROUTE .COMPLEX Qty: 10.2 2RF Dose Instruction: INHALE TWO PUFFS BY MOUTH TWICE A DAY Rx Instructions: INHALE TWO PUFFS BY MOUTH TWICE A DAY cholecalciferol (vitamin D3) 250 mcg (10,000 unit) capsule 10,000 unit PO DAILY Rx Instructions: Per pt, 5000 units daily (07/16/22) loratadine [Claritin] 10 mg tablet 10 mg PO DAILY Rx Instructions: PRN losartan 100 mg tablet 50 mg PO DAILY Rx Instructions: Per pt, 50mg daily (07/16/22) diltiazem HCl 300 MG capsule,extended release 24hr 240 mg PO DAILY fluoxetine [Prozac] 10 mg capsule 10 mg PO DAILY Patient Comments: TAKE 1 CAPSULE BY MOUTH DAILY Discharge Instructions Additional Instructions: Surgery: Right shoulder arthroscopy with rotator cuff repair (supraspinatus), biceps tenodesis, extensive debridement, distal clavicle excision, and subacromial decompression. Activity: For 6 weeks, you should keep your arm at your side in a neutral position at all times except for physical therapy. Do not try to lift or raise your arm using your own muscles. You should use the sling whenever you are out of the house. You may have to adjust the abduction pillow or remove it for comfort. At home it is best to remove the sling and rest the arm on a pillow at your side or support the operative side with your other hand. You may allow the arm to dangle at your side. A physical therapy prescription will be sent electronically to begin in about 3 weeks. STANDARD protocol. Prescriptions: Resume Aspirin 81 mg daily tomorrow morning Naproxen 250 mg take 1-2 every 12 hours with a meal as needed for moderate pain Oxycodone 5 mg take 1-2 every 4-6 hours as needed for severe pain You may use dutt-rmy-ernzpkc Tylenol (acetaminophen) as needed for mild pain. These pain medications may be taken all at once or in different combinations as needed. Also, recommend Colace (docusate) as a stool softener as surgery and pain medicine cause constipation. You may try qmah-uqn-djvyxaw diphenhydramine (Benadryl) 25-50 mg nightly as a sleep aid Dressings: Remove shoulder bandage after 3 days. Leave the sticky Steri-Strips in place until they fall off or remove them after you shower. Cover the incisions with Band-Aids or leave them open to air. You may shower after 5 days. Follow-up: 10-[address] Whitney You may take off the leg compression stockings this evening at home. You may also leave them on a few days longer if you have a history of leg swelling or edema. Let us know right away if you develop any redness, drainage, fevers, chest pain, or trouble breathing. Do not drink alcohol or drive for at least 24 hours after anesthesia. Please call the office during business hours with any questions or concerns. DS: Diagnosis Discharge Diagnosis (1) Rotator cuff tear, right: Status: Acute (2) Tendonitis of long head of biceps brachii of right shoulder: Status: Acute (3) Arthritis of right acromioclavicular joint: Status: Acute
--- NOTE | 2023-03-14 07:24 | W.PM.OP ---
Date of service: 03/14/23 Time of Service: 11:00 Operative Note Operative Note DATE OF PROCEDURE: 03/14/23 PRE-OP DIAGNOSIS: Right: 1. Rotator cuff tear 2. LHB tendinopathy 3. Bursitis 4. ACJ arthritis POST-OP DIAGNOSIS: same PROCEDURE: Right: 1. Rotator cuff repair, CPT# 47270. This involved repair of the supraspinatus using anchors and sutures to reattach the rotator cuff back to the footprint of the greater tuberosity. 2. Arthroscopic biceps tenodesis, CPT# 97701. This involved arthroscopically suturing and reattaching the long head of the biceps tendon to the proximal humerus at the superior margin of the bicipital groove with a screw at the correct tension. 3. Extensive debridement, CPT# 12271. This involved using arthroscopic hand instruments, power instruments, and radiofrequency instruments to release the long head of the biceps tendon and debride areas of labral tearing, synovitis, and chondromalacia about the central glenoid and superior humeral head, release [facility] working within the glenohumeral joint anteriorly, superiorly and posteriorly. 4. Subacromial decompression with partial acromioplasty, CPT# 46181. This involved using arthroscopic power instruments and a radiofrequency wand to complete a bursectomy and smooth the undersurface of the acromion. 5. Arthroscopic distal clavicle excision, CPT# 91281. This involved arthroscopically exposing the underside of the acromioclavicular joint, smoothing out bone spurs, and removing approximately 5 mm of the distal clavicle so there was no bone left engaging the acromion. The automobile mechanic assistant was medically required in order to help assist in techniques above, which require positioning the arm, holding the arthroscope, and manipulating multiple instruments and sutures at the same time. This cannot be done without the help of an experienced automobile mechanic assistant. SURGEON: Mati Whitney RUG HOOKER HAND: Raina Almeida ANESTHESIA TYPE: General LMA/ETT and Primary Nerve Block Refer to Anesthesia Record ESTIMATED BLOOD LOSS: 10 PATHOLOGY: none sent COMPLICATIONS: None Patient was transported to: PACU Patient's condition: stable Implants: Arthrex: 4.75mm SwiveLocks x 2 Indications: The patient was diagnosed with the above conditions and appropriately indicated for surgical intervention. Please see complete medical record for details. Findings: Exam under anesthesia: Full range of motion, no instability Glenohumeral joint: Moderate central glenoid chondromalacia. High-grade about 90% central articular supraspinatus rotator cuff tear. Moderate chronic fibrinous changes above the exposed greater tuberosity. Intact subscapularis. Long head biceps injection with only possible small SLAP tearing. Intact articular infraspinatus. Subacromial space: Moderate bursitis. Moderate narrowing undersurface acromion on bursal rotator cuff. Moderate distal clavicle hypertrophy and mild narrowing AC joint. Thin veil intact bursal lateral supraspinatus tissue readily debrided exposing the known articular?sided tear. Good rotator cuff tissue margins. Procedure Description: In the operating room, general anesthesia was induced. Bilateral shoulders were examined. The patient was positioned in the beachchair position. All bony prominences were well-padded. Preoperative antibiotics were administered. The shoulder was prepped and draped in the usual sterile fashion. The correct patient, procedure, and side of the procedure were all verified prior to incision. Starting through the posterior portal a standard complete diagnostic arthroscopy was performed of the glenohumeral joint including inspection of the long head of the biceps, anterior and superior labrum, subscapularis tendon, supraspinatus and infraspinatus tendons, and axillary recess. The glenoid and humeral head cartilage as well as the posterior labrum were inspected from an anterior viewing portal. Significant findings and interventions noted above. Of note, a spinal needle was inserted from superior anterior lateral localized through the thin veil of intact bursal supraspinatus tissue to confirm nearly full-thickness tear and for later localization on the bursal side. The readily accessible greater tuberosity was debrided of fibrinous material and tissue margins prepared for repair. An all-arthroscopic suprapectoral biceps tenodesis was performed through an anterior portal using a Loop N Tack method with a SutureTape FiberLink cinched around and through the tendon. The biceps was tenotomized from the labrum and fixated with a suture anchor at the superior margin of the bicipital groove. Starting through the posterior portal, the arthroscope was directed into the subacromial space. A lateral 50 yard line lateral portal was created. A combination of power instruments and a radiofrequency ablator were used to debride bursitis anteriorly, posteriorly, and laterally as well as expose and smooth bone spurring on the undersurface of the acromion. The coracoacromial ligament was partially released. The bursectomy was completed viewing laterally and working from posteriorly and the rotator cuff was thoroughly inspected with findings noted above. The spinal needle confirmed location of nearly complete supraspinatus articular rotator cuff tear. Correlated nicely with the advanced imaging. The thin bursal layer was elevated from lateral to preserve tissue length. Working through the small opening laterally the cuff grasper was used to define the extent of the tear from anterior posterior. The bone had previously been prepared to optimize bone tendon healing from the articular side. A rasp was used to thoroughly debride again working more centrally and laterally now viewing from personally. Shaver was used to complete preparation for repair. The self retrieving suture passer was used to place an inverted horizontal mattress FiberTape centrally about the tear spanning it nicely. A FiberLink suture tape in cinch mode was then placed centrally in a ripstop configuration. The rigid Ingrid cannula clear insert was used to confirm appropriate suture fixation and reduction to a single lateral row anchor. The undersized punch was used followed by insertion of a 4.75 mm SwiveLock anchor appropriately loaded with the rotator cuff repair sutures. The repair achieved excellent tissue reduction over the prepared greater tuberosity footprint. It had slightly increased tension to bring the best tissue over the bone. Stable through range of motion and probing. The anterior portal was redirected towards the undersurface of the AC joint. A shaver and electrocautery device were used to clear soft tissue from the undersurface of the AC joint. The distalmost part of the distal clavicle was then removed and smoothed. Care was taken to ensure that proper amount of bone was removed and there was no engaging bone left behind especially superiorly while leaving the superior capsule largely intact. The shoulder was drained of arthroscopic fluid. All portal sites were copiously irrigated. These incisions were closed using 3-0 Monocryl in a buried fashion and then covered with Mastisol, Steri-Strips, Xeroform, dry gauze, and ABDs. The dressings were covered and secured with Medipore tape. The operative extremity was placed into a sling for immobilization. The patient awoke from anesthesia without complication and was transferred to the recovery room in a stable condition.
--- NOTE | 2023-03-14 08:03 | ANES.PREOP_ITS ---
General Info Date of Service Date Performed: 03/14/23 Height: 5 ft 1 in Weight: 88.451 kg Body Mass Index (BMI): 36.8 Surgical Procedure: Operation Date: 03/14/23 10:25 Proposed Procedure Side Surgeon p Shoulder Rotator Cuff Arthroscopic w/Extensive Debridement, Biceps Tenodesis, Subacromial Decompression, Distal Clavicle Excision Right Mati Whitney MD Meds Allergies and Home Medications Allergies Allergy/AdvReac Type Severity Reaction Status Date / Time aripiprazole [From Abilify] Allergy Severe Syncope Unverified 03/14/23 09:02 and hypotension Penicillins Allergy Severe seizures Unverified 03/14/23 09:02 Home Medication Medication Instructions Recorded diltiazem HCl 300 mg 240 mg PO DAILY 10/05/13 capsule,extended release 24 hr bupropion HCl 100 mg tablet,12 hr 100 mg PO DAILY 03/26/16 sustained-release (Wellbutrin SR) fluticasone propionate 50 2 spray intranasal DAILY 09/14/19 mcg/actuation nasal spray,suspension spironolactone 50 mg tablet 50 mg PO DAILY 09/14/19 (Aldactone) fluoxetine 10 mg capsule (Prozac) 10 mg PO DAILY 02/09/21 levalbuterol tartrate 45 2 inh inhalation ONCE PRN 11/26/21 mcg/actuation aerosol inhaler budesonide-formoterol HFA 160 See Rx Instructions .Route 07/05/22 mcg-4.5 mcg/actuation aerosol .COMPLEX #10.2 grams inhaler (Symbicort) acetylcysteine 600 mg capsule (NAC) 600 mg PO DAILY 07/16/22 aspirin 81 mg tablet,delayed 81 mg PO DAILY 07/16/22 release cholecalciferol (vitamin D3) 250 10,000 unit PO DAILY 07/16/22 mcg (10,000 unit) capsule loratadine 10 mg tablet (Claritin) 10 mg PO DAILY 07/16/22 multivitamin 1 tab PO DAILY 07/16/22 tiotropium bromide 1.25 2 puff inhalation DAILY #3 07/16/22 mcg/actuation mist for inhalation inhalations (Spiriva Respimat) vitamin C-echinacea purp.-hb11 500 1 tab PO DAILY 07/16/22 mg tablet zinc sulfate 50 mg zinc (220 mg) 50 mg PO DAILY 09/27/22 tablet losartan 100 mg tablet 50 mg PO DAILY 10/02/22 metformin 1,000 mg tablet 1,000 mg PO DAILY 01/07/23 naproxen 250 mg tablet 250 - 500 mg PO BID PRN #40 tabs 03/14/23 oxycodone 5 mg tablet 5 - 10 mg PO Q4H PRN moderate to 03/14/23 severe pain #18 tabs Current Visit Medications: Current Medications Generic Name Dose Route Start Last Admin Trade Name Freq PRN Reason Stop Dose Admin Ringer's Solution 1,000 mls @ 30 mls/hr 03/14/23 06:00 IV 03/14/23 16:00 INFUSION [facility] IV Miscellaneous Supplies 1 each 03/14/23 06:00 Iv Access IV 03/14/23 23:59 DIRECTED [facility] Oxycodone HCl 0 mg 03/14/23 07:15 Oxycodone 5 Mg Tab PO 04/13/23 07:14 Q3H PRN PRN Pain Sodium Chloride 0 ml 03/14/23 06:00 Normal Saline Flush 10 Ml Syr IV 03/14/23 23:59 PRN PRN Sodium Chloride 0 ml 03/14/23 06:00 Normal Saline 10 Ml Vial IJ 03/14/23 23:59 DIRECTED PRN Sterile Water 0 ml 03/14/23 06:00 Water,Injection,Sterile 10 Ml Vial IJ 03/14/23 23:59 DIRECTED PRN PFSH Active Problems Active Problems: Problem Status Onset Code Arthritis of right acromioclavicular joint M19.011 Tendonitis of long head of biceps brachii of right shoulder M75.21 Rotator cuff tear, right M75.101 Allergic rhinitis J30.9 Asthma J45.909 Obesity E66.9 Tubular adenoma ~01/2021 D36.9 Colon cancer screening Z12.11 Vitiligo L80 Medical History Medical History Allergic rhinitis Ankle edema Anxiety associated with depression Apnea, sleep Asthma BMI 35.0-35.9,adult Diabetes mellitus Diverticulitis Dyspepsia Dysthymia has used Wellbutrin for years. Family history of breast cancer Hypercalcemia Hypertension Malaise and fatigue Osteoarthritis of carpometacarpal (CMC) joint of left thumb Psoriasis PTSD (post-traumatic stress disorder) Syncope Vaginal atrophy Surgical History Surgical History Abdominal hysterectomy (~1959) for uterine fibroids. with ovarian conservation. Dr. Hansen. section 1979 Dilation and curettage History of cataract extraction History of colonoscopy (~01/2021) History of hysterectomy Tobacco Smoking/Tobacco Use Status: Never Alcohol Alcohol Intake: current Alcohol intake frequency: holidays/special occasions only Substance Use Substance use: Never Substance use type: does not use Vital Signs and Lab Results Vital Signs Most Recent Vital Signs in EMR: Temp Pulse Resp BP Pulse Ox 36.2 C L 78 16 132/72 97 03/14/23 08:38 03/14/23 08:38 03/14/23 08:38 03/14/23 08:38 03/14/23 08:38 Lab Results Blood Type / Crossmatch: No Data to Display Complete Blood Count: No Data to Display Complete Metabolic Panel: No Data to Display Liver Function Panel: No Data to Display Coagulation Panel: No Data to Display Cardiac Panel: No Data to Display Arterial Blood Gas: No Data to Display Venous Blood Gas: No Data to Display Pancreas Panel: No Data to Display Thyroid Panel: No Data to Display Infectious Disease: No Data to Display Blood Cultures: No Data to Display Toxicology Panel: No Data to Display Imaging and Studies Imaging and Studies Study information below may be from another EMR and interpreted by another provider. Please see original notes in EMR for more complete details. Pulmonary Function Summary: Isolated mildly elevated diffusion capacity. This can be seen in early developing asthma, therefore if the diagnosis of asthma is in question proceeding with methacholine challenge testing may prove to be useful. 09/15/17 Anesthesia Assessment and Plan Anesthesia History Personal History: PONV Family History: No Family History of Anesthesia Complications Exercise Tolerance Exercise Tolerance: Metabolic Equivalents>4 Cardiac & Pulmonary Exam Cardiac Exam: Normal S1/S2 Heart Sounds Pulmonary Exam: Clear Bilateral Breath Sounds Implantable Cardiac Device Does patient have a Pacemaker or an ICD?: No Airway Exam Known Difficult Airway: No Mallampati Class: 4 Mouth Opening: Normal (> 3cm) Thyromental Distance: Greater than 3 cm Neck Range of Motion: Full ROM Neck Circumference: Thick Teeth Condition: Normal Dentition ASA Classification ASA Score: ASA 2 Emergency Case?: No NPO Status NPO Status: NPO Clears >2 hours, Solids >8 hours Anesthesia Plan Resuscitation Status: Full Code Anesthesia Technique: General Anesthesia Airway Planned: Endotracheal Tube Pain Management: Surgeon and patient request nerve block Monitors Used: Standard Monitors Preoperative Comments:: 67 yo female for shoulder scope. Sig PMHx: asthma (levalbut- on this as opposed to albut because it works better for her), BMI 36, SAUL (uses CPAP), DM (metformin), HTN (diltiazem, losartan, spironolactone), syncope (states that it is associated with pain. typically will pass out with very painful things), PTSD, never smoker, occ EtOH. Previous Anes: - colo, prop, glyco/atropine for sandy, natural airway.
[2023-03-14] MEDS: Lactated Ringers 1,000 ML 30 ML IV (09:00)
[2023-03-14] MEDS: ceFAZolin 3,000 MG in Normal Saline 100 ML 200 MG IVPB (10:52)
--- NOTE | 2023-03-14 11:18 | W.ANESNERVE ---
Nerve Block Single Injection Procedure Date and Time Date Performed: 03/14/23 Procedure Start: 10:38 Location Where Procedure Performed Procedure Location: Day Surgery Unit Reason Performed: Postoperative Analgesia Requesting Provider: Mati Whitney Timeout Performed Timeout Performed: Yes Monitoring Used ECG, Blood Pressure and SpO2 Sterility Sterility: Hand Hygiene, Surgical Cap, Surgical Mask, Sterile Gloves and Chlorhexidine Sedation Given During Procedure Sedation Given (Indicate Dose Given): Versed IV Dose:: 2 mg, Propofol IV Dose:: 15 mg and Other: (Lidocaine) Medication/Route/Dose:: 60 mg Patient Mental Status Patient Mental Status: Sedate with meaningful communication Nerve Block 1st Nerve Block: Laterality: Right Block Type: Interscalene Ultrasound Image Saved?: Yes Needle / Catheter Used: 100mm SonoPlex II Local Anesthetic Bolus (Indicate Dose Given): Lidocaine used for local infiltration of skin, Injected in 3-5ml increments after negative blood aspiration, Bupivacaine 0.5% Dose:: 12 mL and Exparel Dose:: 7 mL Additives (Indicate Dose Given): None Ultrasound: Sterile probe cover and gel used Nerve Stimulator: Supplement to Ultrasound use and No twitch or parasthesia noted < 0.5 mA Paresthesia: None Procedure Tolerated: No Complications Procedure Outcome: Successful Procedure Comment: positioned laterally, good interscalene view, difficulty getting the local to spread between the muscle. US picture of superficial cervical plexus block, with local spread noted in groove. Performed By: Manoj Morris 2nd Nerve Block: Laterality: Right Block Type: Superficial Cervical Plexus Ultrasound Image Saved?: Yes Needle / Catheter Used: 100mm SonoPlex II Local Anesthetic Bolus (Indicate Dose Given): Bupivacaine 0.5% Dose:: 3 mL and Exparel Dose:: 3 mL Additives (Indicate Dose Given): None Ultrasound: Sterile probe cover and gel used Nerve Stimulator: Supplement to Ultrasound use Paresthesia: None Procedure Tolerated: No Complications Procedure Outcome: Successful Performed By: Manoj Morris
[2023-03-14] MEDS: EPINEPHrine 30 MG/30 ML VIAL (12:30)
--- NOTE | 2023-03-14 13:28 | W.ANESPOSTOP ---
Postoperative Evaluation Date, Time and Location Date Performed: 03/14/23 Time Performed: 13:28 Patient Location: Day Surgery Unit Vital Signs Most Recent Imported Vital Signs: Most Recent Vital Signs Temp Pulse Resp BP Pulse Ox 36.6 C 63 19 119/54 L 94 03/14/23 13:12 03/14/23 13:12 03/14/23 13:12 03/14/23 13:12 03/14/23 13:12 Pain Score Most Recent Pain Score: Most Recent Pain Score Pain Level 0 03/14/23 10:30 Assessment Mental Status: Awake (Alert & Oriented to Patient Baseline) Airway and Respiratory Function: Patent airway with normal (patient baseline) respiratory exam Cardiovascular Function: Hemodynamically Stable Hydration Status: Adequately Hydrated Nausea & Vomiting: No Nausea or Vomiting Pain: Pt. Denies Any Pain Peripheral Nerve Block: Regional nerve block not resolved at time of post operative discharge
== END 2023-03-14 15:10 | disposition home or self-care (01) ==
PROVIDERS: PCP Nurse Practitioner Family; Visit Provider Student in an Organized Health Care Education/Training Program
PROC: (CPT 29827; principal; 2023-03-14 10:15)
DX: M75.101 Unspecified rotator cuff tear or rupture of right shoulder, not specified as traumatic (principal); M75.21 Bicipital tendinitis, right shoulder; M19.011 Primary osteoarthritis, right shoulder; M75.51 Bursitis of right shoulder
CPT/HCPCS: 29827; 29826; 29828; 29824; 29823; 76942; J0131; J0690; J1100; J1885; J2001; J2250; J2370; J2405

== ENCOUNTER → 2023-03-25 10:59 | Outpatient (BNVA) | payer MEDICARE, SELFPAY | PROVIDERS: PCP Nurse Practitioner Family; Referring Provider Nurse Practitioner Family; Visit Provider Student in an Organized Health Care Education/Training Program | DX: Z47.89 Encounter for other orthopedic aftercare (principal); M75.21 Bicipital tendinitis, right shoulder ==

== ENCOUNTER → 2023-05-06 09:57 | Outpatient (BNVA) | payer MEDICARE, SELFPAY | PROVIDERS: PCP Nurse Practitioner Family; Referring Provider Nurse Practitioner Family; Visit Provider Student in an Organized Health Care Education/Training Program | DX: Z47.89 Encounter for other orthopedic aftercare (principal); M75.101 Unspecified rotator cuff tear or rupture of right shoulder, not specified as traumatic ==

== ENCOUNTER → 2023-06-10 02:48 | Outpatient (CLI) | payer MEDICARE, SELFPAY ==
--- NOTE | 2023-06-10 12:59 | DI.MAMMO_ITS ---
Exam(s) MAMMO SCREENING EXAM: MAMMO SCREENING CLINICAL HISTORY: SCREENING, Z12.31, FAMILY H/O BREAST CA, Z80.3. TECHNIQUE: Bilateral full field digital CC and MLO mammographic images were obtained with 3D tomosyn thesis and utilizing computer aided detection (CAD). COMPARISON: Prior mammograms were reviewed. FINDINGS: There has been no significant change in the appearance and distribution of the fibroglandular tissue. Previously described small benign-appearing nodule in the left breast is unchanged from March 2022. F or, there is a 2nd new nodule now evident in this region as seen on CC view medially in the left [address]. Additional imaging recommended. No new findings in the opposite-right breast. No malignant-appearing microcalcification groups either breast. There is no significant architectural distortion nor skin thickening-retraction. IMPRESSION: 1. No radiographic evidence of malignancy in right breast. 2. New additional nodule medial inferior left breast, this in addition to the other nodule described 1 year ago which remains unchanged. Spot compression view and ultrasound recommended. BI-RADS Category 0 - Assessment Incomplete: Need additional imaging evaluation Breast Density - Category C - Heterogeneously dense Breast density Category C or D implies that the patient has dense breast tissue. Dense breast tissue can make it harder to find cancer on a mammogram. Dense breast tissue is also associated with an incr eased risk of breast cancer. This information about the result of the mammogram report was provided to the patient to raise their awareness. Use this report when you speak with the patient about their risks for breast cancer, which includes their family history. At that time, you may recommend additional screening tests (Ultrasoun d or MRI) as these tests may add significant information. A negative radiographic report should not delay biopsy if a dominant or clinically suspicious mass is present. Up to ten percent of cancers are not identified on mammography. A negative report may reinforce clinical impression. Adenosis and dense breasts may obscure an underlying neoplasm. False positive reports average 6 to 10%. Patient will receive a letter notifying them of these results.
== END ==
PROVIDERS: PCP Nurse Practitioner Family; Visit Provider Nurse Practitioner Family
DX: Z12.31 Encounter for screening mammogram for malignant neoplasm of breast (principal)
CPT/HCPCS: 77063; 77067

== ENCOUNTER → 2023-06-12 02:05 | Outpatient (CLI) | payer MEDICARE, SELFPAY ==
--- NOTE | 2023-06-12 | DI.MAMMO_ITS ---
Exam(s) MG MAMMO SCREEN CALL BACK UNI US BREAST LT COMPLETE EXAM: MG MAMMO SCREEN CALL BACK UNI-LEFT AND COMPLETE LEFT BREAST ULTRASOUND CLINICAL HISTORY: F/U MAMMO, NEW LT BREAST NODULE, UNCHANGED PREVIOUS NODULE,R92.8. TECHNIQUE: Unilateral spot mammographic images obtained with 3D tomosynthesisand utilizing computer aided detection (CAD). . Complete LEFT breast Ultrasound was also performed, including all 4 quadrants, the retroareolar regio n, and the ipsilateral axilla. COMPARISON: Prior mammograms were reviewed. This additional imaging was performed due to findings described on the recent screening mammogram of 06/10/2023. FINDINGS: DIAGNOSTIC MAMMOGRAM: Additional mammographic views performed todayrevealed both nodules to persist. Proceeded with ultrasound COMPLETE LEFT BREAST ULTRASOUND: Ultrasound performed today reveals a benign 4 millimeter microcyst at the 1 o'clock position. The 8 o'clock position there is a 4 x 2 millimeter microcyst corresponding to of the medially located nodules on the mammogram. At the 9 o'clock position there is another microcyst measuring 4 x 3 mm.. This benign finding corres ponds to the 2nd nodule. No solid lesions seen in all 4 quadrants. Scanning of the ipsilateral axilla reveals no significant adenopathy. IMPRESSION: 1. There are now 2 microcysts medially in the left breast which correspond to the 2 nodules on the m ammogram, 1 of which is new on the recent screening mammogram. 2. There is no other benign micro cyst incidentally noted at the 1 o'clock position. Appropriate follow-up is to keep this patient on a yearly mammogram schedule, with earlier imaging i f a self detected breast change is noted.. The patient was informed of these findings and recommendations prior to leaving the department today. BI-RADS Category 2 - Benign Findings Breast Density - Category B - Scattered areas of fibroglandular density Breast density Category C or D implies that the patient has dense breast tissue. Dense breast tissue can make it harder to find cancer on a mammogram. Dense breast tissue is also associated with an incr eased risk of breast cancer. This information about the result of the mammogram report was provided to the patient to raise their awareness. Use this report when you speak with the patient about their risks for breast cancer, which includes their family history. At that time, you may recommend additional screening tests (Ultrasoun d or MRI) as these tests may add significant information. A negative radiographic report should not delay biopsy if a dominant or clinically suspicious mass is present. Up to ten percent of cancers are not identified on mammography. A negative report may reinforce clinical impression. Adenosis and dense breasts may obscure an underlying neoplasm. False positive reports average 6 to 10%. Patient will receive a letter notifying them of these results.
== END ==
PROVIDERS: PCP Nurse Practitioner Family; Visit Provider Nurse Practitioner Family
DX: R92.8 Other abnormal and inconclusive findings on diagnostic imaging of breast (principal); Z12.31 Encounter for screening mammogram for malignant neoplasm of breast
CPT/HCPCS: 76642; 77063; 77067

== ENCOUNTER → 2023-06-17 09:58 | Outpatient (BNVA) | payer MEDICARE, SELFPAY | PROVIDERS: PCP Nurse Practitioner Family; Referring Provider Nurse Practitioner Family; Visit Provider Student in an Organized Health Care Education/Training Program | DX: M75.101 Unspecified rotator cuff tear or rupture of right shoulder, not specified as traumatic (principal); M75.21 Bicipital tendinitis, right shoulder | CPT/HCPCS: 99213 ==

== ENCOUNTER → 2023-09-16 09:51 | Outpatient (BNVA) | payer MEDICARE, SELFPAY | PROVIDERS: PCP Nurse Practitioner Family; Referring Provider Nurse Practitioner Family; Visit Provider Student in an Organized Health Care Education/Training Program | DX: M75.101 Unspecified rotator cuff tear or rupture of right shoulder, not specified as traumatic (principal); M75.21 Bicipital tendinitis, right shoulder | CPT/HCPCS: 99213 ==

== ENCOUNTER → 2023-11-17 15:02 | Outpatient (BNVA) | payer MEDICARE, SELFPAY | PROVIDERS: PCP Nurse Practitioner Family; Referring Provider Nurse Practitioner Family; Visit Provider Physician Assistant Surgical | DX: J45.909 Unspecified asthma, uncomplicated (principal) | CPT/HCPCS: 99214 ==

== ENCOUNTER 2024-04-20 11:42 | Outpatient (REF) | payer MEDICARE, SELFPAY ==
[2024-04-20 16:44] LABS: ALT 65 U/L (14-59); AST 28 U/L (15-37); Albumin 4.2 g/dL (3.4-5.0); Alkaline Phosphatase 81 U/L (46-116); Anion Gap 7.1 mmol/L (3-11); BUN 13 mg/dL (7-18); CO2 31.9 mmol/L (21.0-32.0); CREATININE 0.8 mg/dL (0.55-1.02); Calculated LDL 131 mg/dL (<100); Chloride 103 mmol/L (98-107); Cholesterol 217 mg/dL (<200); Estimated GFR 80.21 (mL/min/1.73m2); Glucose 124 mg/dL (74-106); HDL Cholesterol 58 mg/dL (40-60); Magnesium 1.9 mg/dL (1.8-2.4); Potassium 5.2 mmol/L (3.5-5.1); Sodium 142 mmol/L (136-145); Total Protein 7.6 g/dL (6.4-8.2); Triglyceride 140 mg/dL (<150); Vitamin B12 747 pg/mL (193-986)
[2024-04-20 16:52] LABS: Hemoglobin A1C 6.7 % (<5.7)
== END 2024-04-20 11:43 | disposition home or self-care (01) ==
LOC: NCHCN 11:42
PROVIDERS: PCP Nurse Practitioner Family; Visit Provider Nurse Practitioner Family
DX: E11.9 Type 2 diabetes mellitus without complications (principal); I10 Essential (primary) hypertension; R79.89 Other specified abnormal findings of blood chemistry; Z79.899 Other long term (current) drug therapy
CPT/HCPCS: 80053; 80061; 82607; 83036; 83735

== ENCOUNTER → 2024-05-17 11:07 | Outpatient (BNVA) | payer MEDICARE, SELFPAY | PROVIDERS: PCP Nurse Practitioner Family; Referring Provider Nurse Practitioner Family; Visit Provider Physician Assistant Surgical | DX: J45.909 Unspecified asthma, uncomplicated (principal) | CPT/HCPCS: 99214 ==

== ENCOUNTER 2024-05-20 14:56 | Outpatient (REF) | payer MEDICARE, SELFPAY ==
[2024-05-20 15:39] LABS: Anion Gap 7.8 mmol/L (3-11); BUN 13 mg/dL (7-18); CO2 31.2 mmol/L (21.0-32.0); CREATININE 0.8 mg/dL (0.55-1.02); Calcium 9.5 mg/dL (8.5-10.1); Chloride 104 mmol/L (98-107); Estimated GFR 80.21 (mL/min/1.73m2); Glucose 116 mg/dL (74-106); Potassium 4.6 mmol/L (3.5-5.1); Sodium 143 mmol/L (136-145)
== END 2024-05-20 14:57 | disposition home or self-care (01) ==
LOC: NCHCN 14:56
PROVIDERS: PCP Nurse Practitioner Family; Visit Provider Nurse Practitioner Family
DX: I10 Essential (primary) hypertension (principal)
CPT/HCPCS: 80048

== ENCOUNTER 2024-06-16 01:48 | Outpatient (CLI) | payer MEDICARE, SELFPAY ==
--- NOTE | 2024-06-16 | DI.MAMMO_ITS ---
Exam(s) MAMMO SCREENING EXAM: MAMMO SCREENING CLINICAL HISTORY: Z12.31 Screening. TECHNIQUE: Bilateral full field digital CC and MLO mammographic images were obtained with 3D tomosyn thesis and utilizing computer aided detection (CAD). COMPARISON: Prior mammograms were reviewed. FINDINGS: There has been no significant change in the appearance and distribution of the fibroglandular tissue. The 2 previously described small nodular densities in the medial aspect of the left breast (which wer e shown to be microcyst on prior ultrasound) are unchanged in size. There are no new spiculated masses nor malignant appearing microcalcification groups in either breast . There is no significant architectural distortion nor skin thickening-retraction. IMPRESSION: Stable benign findings. No radiographic evidence of malignancy. BI-RADS Category 2 - Benign Findings Breast Density - Category B - Scattered areas of fibroglandular density Breast density Category C or D implies that the patient has dense breast tissue. Dense breast tissue can make it harder to find cancer on a mammogram. Dense breast tissue is also associated with an incr eased risk of breast cancer. This information about the result of the mammogram report was provided to the patient to raise their awareness. Use this report when you speak with the patient about their risks for breast cancer, which includes their family history. At that time, you may recommend additional screening tests (Ultrasoun d or MRI) as these tests may add significant information. A negative radiographic report should not delay biopsy if a dominant or clinically suspicious mass is present. Up to ten percent of cancers are not identified on mammography. A negative report may reinforce clinical impression. Adenosis and dense breasts may obscure an underlying neoplasm. False positive reports average 6 to 10%. Patient will receive a letter notifying them of these results.
== END 2024-06-16 02:08 ==
LOC: DI 01:48
PROVIDERS: PCP Nurse Practitioner Family; Visit Provider Nurse Practitioner Family
DX: Z12.31 Encounter for screening mammogram for malignant neoplasm of breast (principal)
CPT/HCPCS: 77063; 77067

== ENCOUNTER 2024-07-07 03:03 | Outpatient (CLI) | payer MEDICARE, SELFPAY ==
[2024-07-07 10:24] LABS: ALT 52 U/L (14-59); AST 22 U/L (15-37); Albumin 3.8 g/dL (3.4-5.0); Alkaline Phosphatase 88 U/L (46-116); Anion Gap 8.4 mmol/L (3-11); BUN 13 mg/dL (7-18); Bilirubin, Total 0.39 mg/dL (0.2-1.0); CO2 28.6 mmol/L (21.0-32.0); CREATININE 0.8 mg/dL (0.55-1.02); Calcium 9.6 mg/dL (8.5-10.1); Chloride 103 mmol/L (98-107); Estimated GFR 80.21 (mL/min/1.73m2); Glucose 118 mg/dL (74-106); Potassium 4.1 mmol/L (3.5-5.1); Sodium 140 mmol/L (136-145); Total Protein 7.4 g/dL (6.4-8.2)
== END 2024-07-07 03:04 | disposition home or self-care (01) ==
PROVIDERS: PCP Nurse Practitioner Family; Visit Provider Nurse Practitioner Family
DX: R94.5 Abnormal results of liver function studies (principal)
CPT/HCPCS: 36415; 80053

== ENCOUNTER → 2024-11-15 09:06 | Outpatient (BNVA) | payer MEDICARE, SELFPAY | PROVIDERS: PCP Nurse Practitioner Family; Referring Provider Nurse Practitioner Family; Visit Provider Physician Assistant Surgical | DX: J45.909 Unspecified asthma, uncomplicated (principal) | CPT/HCPCS: 99214 ==

== ENCOUNTER → 2025-05-09 09:32 | Outpatient (BNVA) | payer MEDICARE, SELFPAY | PROVIDERS: PCP Nurse Practitioner Family; Referring Provider Nurse Practitioner Family; Visit Provider Physician Assistant Surgical | DX: J45.909 Unspecified asthma, uncomplicated (principal) | CPT/HCPCS: 99214 ==

== ENCOUNTER 2025-06-22 14:20 | Outpatient (CLI) | payer MEDICARE, SELFPAY ==
--- NOTE | 2025-06-22 12:13 | DI.MAMMO_ITS ---
Exam(s) MAMMO SCREENING EXAM: MAMMO SCREENING CLINICAL HISTORY: SCREENING MAMMO Z12.31 TECHNIQUE: Bilateral full field digital CC and MLO mammographic images were obtained with 3D tomosynthesis and utilizing computer aided detection (CAD). COMPARISON: Comparison is made with prior examinations. FINDINGS: Masses/Architectural Distortion: There has been interval increase in size of a nodule in the upper outer quadrant of the left breast 13 cm from the nipple. Microcalcifications: No suspicious pleomorphic-type are seen. Skin Thickening/Nipple Retraction: None. IMPRESSION: 1. Interval increase in size of a nodule in the upper outer quadrant of the left breast. 2. This area should be further evaluated with a spot compression view. Ultrasound may be indicated at that time. BI-RADS Category 0 - Incomplete: Need additional imaging evaluation Breast Density - Category B - There are scattered areas of fibroglandular density. Breast density Category C or D implies that the patient has dense breast tissue. Dense breast tissue can make it harder to find cancer on a mammogram. Dense breast tissue is also associated with an increased risk of breast cancer. This information about the result of the mammogram report was provided to the patient to raise their awareness. Use this report when you speak with the patient about their risks for breast cancer, which includes their family history. At that time, you may recommend additional screening tests (Ultrasound or MRI) as these tests may add significant information. A negative radiographic report should not delay biopsy if a dominant or clinically suspicious mass is present. Up to ten percent of cancers are not identified on mammography. A negative report may reinforce clinical impression. Adenosis and dense breasts may obscure an underlying neoplasm. False positive reports average 6 to 10%. Patient will receive a letter notifying them of these results.
== END 2025-06-22 14:40 ==
LOC: DI 14:20
PROVIDERS: PCP Nurse Practitioner Family; Visit Provider Nurse Practitioner Family
DX: Z12.31 Encounter for screening mammogram for malignant neoplasm of breast (principal); N63.21 Unspecified lump in the left breast, upper outer quadrant
CPT/HCPCS: 77063; 77067

== ENCOUNTER 2025-06-27 09:14 | Outpatient (CLI) | payer MEDICARE, SELFPAY ==
--- NOTE | 2025-06-27 | DI.US_ITS ---
Exam(s) MG MAMMO SCREEN CALL BACK UNI US BREAST LT COMPLETE EXAM: MG MAMMO SCREEN CALL BACK UNI COMPLETE LEFT BREAST ULTRASOUND CLINICAL HISTORY: F/U MAMMO, R92.8,INTERVAL INCREASE IN SIZE UOQ LT BREAST NODULE. TECHNIQUE: Unilateral BREAST spot mammographic images obtained with 3D tomosynthesisand utilizing computer aided detection (CAD). . Complete LEFT breast Ultrasound was also performed, including all 4 quadrants, the retroareolar region, and the ipsilateral axilla. COMPARISON: Prior mammograms were reviewed. This additional imaging was performed due to findings described on the recent screening mammogram of 06/22/2025. FINDINGS: DIAGNOSTIC MAMMOGRAM: Additional mammographic views performed todaydoes not dissipate the nodule described on the recent screening mammogram report.In addition, there is another oval nodule seen medially in the same-left breast. We proceeded with complete left breast ultrasound. COMPLETE LEFT BREAST ULTRASOUND: Ultrasound performed today reveals multiple microcysts which corresponded to the mammogram findings. At the 2 o'clock position there is a 5 mm microcyst located 10 cm in from the nipple which corresponds to the finding on the mammogram. Another slightly smaller microcysts is noted at this level but 8 cm in from the nipple. At the 8 o'clock position there is a 5 millimeter microcyst 8 cm in from the nipple which corresponds to the medially located nodule on the mammogram. Otherwise, there are smaller microcysts at the 1 o'clock and 2 o'clock positions of as well as at the 3 o'clock position and the 10 o'clock position. Most importantly, there are no solid lesions in all 4 quadrants of the left breast. Scanning of the ipsilateral axilla reveals no significant adenopathy. IMPRESSION: 1. There are microcysts in both sides of the left breast which correspond to the nodules located laterally and medially in left breast. No solid lesions identified on ultrasound. Appropriate follow-up is repeat left breast imaging in 6 months to ensure stability.. The patient was informed of these findings and recommendations by myself prior to leaving the department today. BI-RADS Category 3 - 6 month - Probably Benign Finding: Recommend follow-up mammography in 6 months Breast Density - Category C - The breast are heterogeneously dense, which may obscure small masses. Breast density Category C or D implies that the patient has dense breast tissue. Dense breast tissue can make it harder to find cancer on a mammogram. Dense breast tissue is also associated with an increased risk of breast cancer. This information about the result of the mammogram report was provided to the patient to raise their awareness. Use this report when you speak with the patient about their risks for breast cancer, which includes their family history. At that time, you may recommend additional screening tests (Ultrasound or MRI) as these tests may add significant information. A negative radiographic report should not delay biopsy if a dominant or clinically suspicious mass is present. Up to ten percent of cancers are not identified on mammography. A negative report may reinforce clinical impression. Adenosis and dense breasts may obscure an underlying neoplasm. False positive reports average 6 to 10%. Patient will receive a letter notifying them of these results.
== END 2025-06-27 09:34 ==
LOC: DI 09:14
PROVIDERS: PCP Nurse Practitioner Family; Visit Provider Nurse Practitioner Family
DX: Z12.31 Encounter for screening mammogram for malignant neoplasm of breast (principal); N63.21 Unspecified lump in the left breast, upper outer quadrant
CPT/HCPCS: 76642; 77063; 77067

== ENCOUNTER 2025-07-06 16:10 | Outpatient (REF) | payer MEDICARE, SELFPAY ==
[2025-07-06 18:13] LABS: Abs Immature Grans 0.02 10^3/uL (0.0-0.06); HCT 43.2 % (36.0-46.0); HGB 14.3 g/dL (11.2-15.7); Immature Grans % 0.3 %; MCH 30.2 pg (27.0-33.0); MCHC 33.1 % (32.0-36.0); MCV 91 fL (80-95); MPV 9.9 fL (8.0-11.0); Platelet Count 311 10^3/uL (130-400); RBC 4.73 10^6/uL (3.93-5.22); RDW 12.5 % (11.7-14.6); RDW-SD 42.3 fL; WBC 6.60 10^3/uL (4.4-10.8)
[2025-07-06 18:25] LABS: ALT 43 U/L (14-59); AST 19 U/L (15-37); Albumin 4.0 g/dL (3.4-5.0); Alkaline Phosphatase 91 U/L (46-116); Anion Gap 7.6 mmol/L (3-11); BUN 13 mg/dL (7-18); Bilirubin, Total 0.4 mg/dL (0.2-1.0); CO2 31.4 mmol/L (21.0-32.0); Calcium 9.8 mg/dL (8.5-10.1); Calculated LDL 117 mg/dL (<100); Chloride 104 mmol/L (98-107); Cholesterol 189 mg/dL (<200); Estimated GFR 93.56 (mL/min/1.73m2); Glucose 108 mg/dL (74-106); HDL Cholesterol 44 mg/dL (>or=50); Potassium 4.6 mmol/L (3.5-5.1); Sodium 143 mmol/L (136-145); Total Protein 7.1 g/dL (6.4-8.2); Triglyceride 140 mg/dL (<150)
== END 2025-07-06 16:11 | disposition home or self-care (01) ==
LOC: NCHCN 16:10
PROVIDERS: PCP Nurse Practitioner Family; Visit Provider Nurse Practitioner Family
DX: R94.5 Abnormal results of liver function studies (principal); I10 Essential (primary) hypertension
CPT/HCPCS: 80053; 80061; 85025

== ENCOUNTER 2025-09-02 11:10 | Emergency (ER) | payer MEDICARE, SELFPAY ==
--- NOTE | 2025-09-02 11:15 | RT.EKG_ITS ---
APPROVED REPORT Exam: Resting ECG Reason for Exam: palpatations Patient Location: E HR:81 bpm ECG Measurements Heart Rate 81 AXIS LA 201 P 77 QRSd 85 QRS 29 QT 336 T 100 QTc 390 Conclusion Sinus rhythm...normal P axis, V-rate 60- 99 Abnrm R prog, consider ASMI or lead placement...Q >30mS, diminished R, V1-V2 Nonspecific T abnormalities, lateral leads...T <-0.10mV, I aVL V5 V6
[2025-09-02 11:16] VITALS: BP 142/83; PULSE 95; RESP 20; TEMP 36.9; O2SAT 95
--- NOTE | 2025-09-02 11:42 | W.ED.GENAD ---
Discharge Plan Disposition Patient Disposition: Home Condition: Improving Discharge Details Clinical Impression: Anxiety, Panic attack Primary Care Provider: Haydee Lr ED Provider: Shalom Pendleton Home Meds and New Rx's Prescriptions: Continued ascorbate calcium (vitamin C) 500 mg tablet 500 mg PO DAILY acetylcysteine [NAC] 600 mg capsule 600 mg PO DAILY multivitamin Tablet 1 tab PO DAILY magnesium citrate 100 mg capsule 200 mg PO BID ipratropium-albuterol 0.5 mg-3 mg(2.5 mg base)/3 mL solution for nebulization 3 ml inhalation QID PRN (Reason: wheezing) Qty: 180 12RF prazosin 1 mg capsule 1 mg PO QHS montelukast 10 mg tablet 10 mg PO DAILY Ozempic 1 mg/dose (4 mg/3 mL) pen injector 2 mg subcut QWEEK bupropion HCl [Wellbutrin SR] 100 MG tablet extended release 12 hr 100 mg PO DAILY fluticasone propionate 50 mcg/actuation spray,suspension 2 spray NICHOLAS DAILY cholecalciferol (vitamin D3) 250 mcg (10,000 unit) capsule 10,000 unit PO DAILY Rx Instructions: Per pt, 5000 units daily (07/16/22) losartan 100 mg tablet 100 mg PO DAILY Rx Instructions: Per pt, 50mg daily (07/16/22) loratadine [Claritin] 10 mg tablet 10 mg PO DAILY PRN Rx Instructions: PRN levalbuterol tartrate 45 mcg/actuation HFA aerosol inhaler 2 inh inhalation Q6H PRN (Reason: shortness of breath) Qty: 15 4RF Breztri Aerosphere 160-9-4.8 mcg/actuation HFA aerosol inhaler 2 inh inhalation BID Qty: 10.7 12RF diltiazem HCl 300 MG capsule,extended release 24hr 240 mg PO DAILY fluoxetine [Prozac] 10 mg capsule 30 mg PO DAILY Patient Comments: TAKE 1 CAPSULE BY MOUTH DAILY Discharge Instructions Instructions: Anxiety, Adult ED, Panic Attack ED Additional Instructions: You have been provided with a medical screening examination and a mental health evaluation. You are not suicidal or homicidal and currently feels safe for discharge. It appears she responded well to the Ativan. Please follow the instructions given to you by the [facility] human services mental health team. Please follow-up with both your primary care provider as well as your therapist. A short-term as needed prescription for Ativan may be reasonable, but I would like you to discuss this with your primary care doctor. Please watch for new or worsening symptoms and return immediately to the ER. Stand Alone Forms: Portal Information Discharge Data Discharge Date/Time-TO BE ENTERED AT DEPARTURE: 09/02/25 13:29 HPI General Mode of arrival: ambulatory. Date/Time Provider Initiated Documentation: 09/02/25 11:25. Limitations to Documentation: no limitations. Information obtained by: patient. History of Present Illness 70 year old F presents to the emergency department with the chief complaint of Panic attack, described as severe, with intensity rated at 8. Quality is described as other (No pain), and is localized to the head (Mental). Patient reports no radiation. Patient started experiencing this day(s) (3) and it has been intermittent. No relieving factors improve symptom(s), Other factors that worsen symptoms (Family stress) . Patient notes no other symptoms. and other (Denies SI or HI). Patient did receive the following treatments prior to arrival, none Related Data Home Medications Medication Instructions Recorded Confirmed diltiazem HCl 300 mg 240 mg PO DAILY 10/05/13 09/02/25 capsule,extended release 24 hr bupropion HCl 100 mg tablet,12 hr 100 mg PO DAILY 03/26/16 09/02/25 sustained-release (Wellbutrin SR) fluticasone propionate 50 2 spray intranasal DAILY 09/14/19 09/02/25 mcg/actuation nasal spray,suspension acetylcysteine 600 mg capsule (NAC) 600 mg PO DAILY 07/16/22 09/02/25 cholecalciferol (vitamin D3) 250 10,000 unit PO DAILY 07/16/22 09/02/25 mcg (10,000 unit) capsule multivitamin 1 tab PO DAILY 07/16/22 09/02/25 losartan 100 mg tablet 100 mg PO DAILY 10/02/22 09/02/25 loratadine 10 mg tablet (Claritin) 10 mg PO DAILY PRN 05/20/23 09/02/25 ascorbate calcium (vitamin C) 500 500 mg PO DAILY 09/16/23 09/02/25 mg tablet levalbuterol tartrate 45 2 inh inhalation Q6H PRN shortness 05/20/24 09/02/25 mcg/actuation aerosol inhaler of breath #15 grams fluoxetine 10 mg capsule (Prozac) 30 mg PO DAILY 11/15/24 09/02/25 ipratropium 0.5 mg-albuterol 3 mg 3 ml inhalation QID PRN wheezing 11/15/24 09/02/25 (2.5 mg base)/3 mL nebulization #180 mL soln magnesium citrate 100 mg capsule 200 mg PO BID 11/15/24 09/02/25 budesonide 160 mcg-glycopyr 9 2 inh inhalation BID #10.7 grams 01/07/25 09/02/25 mcg-formot 4.8 mcg/actuation HFA inhaler (Breztri Aerosphere) montelukast 10 mg tablet 10 mg PO DAILY 05/09/25 09/02/25 prazosin 1 mg capsule 1 mg PO QHS 05/09/25 09/02/25 semaglutide 1 mg/dose (4 mg/3 mL) 2 mg subcut QWEEK 05/09/25 09/02/25 subcutaneous pen injector ([employer]) Previous Rx's Medication Instructions Recorded levalbuterol tartrate 45 2 inh inhalation Q6H PRN shortness 05/20/24 mcg/actuation aerosol inhaler of breath #15 grams ipratropium 0.5 mg-albuterol 3 mg 3 ml inhalation QID PRN wheezing 11/15/24 (2.5 mg base)/3 mL nebulization #180 mL soln budesonide 160 mcg-glycopyr 9 2 inh inhalation BID #10.7 grams 01/07/25 mcg-formot 4.8 mcg/actuation HFA inhaler (Breztri Aerosphere) Allergies Allergy/AdvReac Type Severity Reaction Status Date / Time aripiprazole (From [facility]) Allergy Severe Syncope Unverified 05/09/25 09:37 and hypotension Penicillins Allergy Severe seizures Unverified 05/09/25 09:37 General Stated Complaint: PsychEval DIMITRI: 2 Review of Systems Constitutional Constitutional: Denies fatigue, Denies fever(s) and Denies weakness Cardiovascular Cardiovascular: Denies chest pain and Denies dyspnea Respiratory Respiratory: Denies cough and Denies dyspnea Gastrointestinal Gastrointestinal: Denies abdominal pain, Denies nausea and Denies vomiting Genitourinary Genitourinary: Denies dysuria Neurologic Neurologic: Denies weakness Psychiatric Psychiatric: Reports anxiety, Reports depression, Reports panic attacks, Denies homicidal ideation and Denies suicidal ideation Endocrine Endocrine: Denies fatigue Exam Const General: cooperative, healthy appearing, no acute distress and anxious (Tearful) Orientation: alert, awake and oriented x3 HENMT Head: normal to inspection, normocephalic and atraumatic Mouth: moist mucous membranes Eyes General: appearance normal, both eyes and all related structures Conjunctivae: conjunctivae normal Neck Neck: normal visual inspection, trachea midline and supple Resp Effort & Inspection: normal respiratory effort and able to speak in complete sentences Auscultation: clear to auscultation bilaterally Cardio Rate: regular rate Rhythm: regular rhythm GI Palpation: soft and nontender Skin General skin exam: no rashes or lesions noted Neuro General: patient alert, patient awake, patient oriented x3, moves all extremities and no focal motor deficits Cognition: normal cognition Speech: speech normal Gait: normal gait Sensory Exam: no sensory deficits noted Extrem General: normal to inspection and full ROM Psych Appearance: grossly normal Mental Status: mental status grossly normal Speech and Movement: speech and movement normal Mood: anxious mood Affect: sad and anxious affect Attitude: cooperative Thought Process: normal Thought Content: normal Insight: insight good Judgment: judgment good Course Vital Signs Vital signs: Vital Signs Temperature 36.9 C 09/02/25 11:16 Pulse 95 H 09/02/25 11:16 Respiratory Rate 20 09/02/25 11:16 Blood Pressure 142/83 H 09/02/25 11:16 Pulse Oximetry 95 09/02/25 11:16 Temperature 36.9 C 09/02/25 11:16 Temperature Source Oral 09/02/25 11:16 Pulse 95 H 09/02/25 11:16 Respiratory Rate 20 09/02/25 11:16 Blood Pressure 142/83 H 09/02/25 11:16 Pulse Oximetry 95 09/02/25 11:16 Medical Decision Making 70-year-old female with anxiety, depression, PTSD, asthma, hypertension presenting to the ER for evaluation of panic attacks and worsening anxiety/depression over the past several days. 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 She has both a primary care provider and therapist who have been very helpful throughout her mental health challenges. Recently there was a in the family and her [id number] has been lashing out at her increasing her current symptoms. She simply has a hard time dealing with her emotions but does not feel suicidal or homicidal. She does feel safe. She has an appointment with her therapist at 2 PM today. She has no medical concerns or complaints. Clinically she appears well, nontoxic but is anxious and tearful. My plan is to provide her with a milligram of Ativan and I would like her to speak with our [facility] mental health team. She has never been hospitalized for mental health issues. She is agreeable to this but would like me to speak with her PCP before engaging in care. I contacted her office but unfortunately she was out for an hour however I was able to speak with her nurse and make her aware of the plan. Upon reevaluation patient is calm, no longer crying, reports feeling much improvement. The Ativan has had a very calming effect and she does not appear sedated. [facility] evaluation completed, please see their note. Patient already has a mental health team and does not want to fully engage in their services but is appreciative of the additional resources she was provided. She was able to be safety plan at home given she has no SI or HI. She has no questions or concerns and is comfortable with this plan. I have recommended that she follow-up with her therapist as well as speak with her PCP regarding possibly a few rescue doses of benzodiazepine such as Ativan when she gets into a panic state. She was encouraged to watch for new or worsening symptoms and return immediately to the ER. Standard discharge and return precautions were provided. Patient understands, is agreeable to this plan, and has no additional questions or concerns upon discharge. This documentation was generated using [employer] system, please disregard any oddities of phrase or misspellings. Medical Records Medical records reviewed: Yes I reviewed the patient's medical records. ECG Data Interpretation: Sinus rhythm, ventricular to 81. Nonspecific T wave abnormalities, no STEMI. Please see official report by Dr. Grossman. [facility] All Active Problems Panic attack (Acute) Anxiety (Chronic) Arthritis of right acromioclavicular joint (Acute) Tendonitis of long head of biceps brachii of right shoulder (Acute) Rotator cuff tear, right (Acute) Allergic rhinitis (Acute) Asthma (Chronic) Obesity (Chronic) Tubular adenoma (Acute ~01/2021) Colon cancer screening (Acute) Vitiligo (Acute) Medical History Asthma Family history of breast cancer Diverticulitis Osteoarthritis of carpometacarpal (CMC) joint of left thumb Hypercalcemia Psoriasis Malaise and fatigue Dyspepsia Syncope Ankle edema Diabetes mellitus Allergic rhinitis Apnea, sleep PTSD (post-traumatic stress disorder) Anxiety associated with depression Hypertension Vaginal atrophy BMI 35.0-35.9,adult Dysthymia has used Wellbutrin for years. Surgical History History of colonoscopy (~01/2021) History of cataract extraction History of hysterectomy section 1980 Abdominal hysterectomy (~1959) for uterine fibroids. with ovarian conservation. Dr. Hansen. Dilation and curettage Family History Other Breast cancer Diabetes Essential hypertension Lung cancer Social History Smoking/Tobacco Use Status: Never Smoking risk assessment performed?: Yes Alcohol Intake: current Alcohol Intake frequency: holidays/special occasions only Drug use: Never Substance use type: does not use Housing: apartment Current gender identity: female Do you feel safe at home: Yes Do you feel safe in your relationship?: Yes Additional Social history: Pt reports that she lives in apartment attached to [id number] house.
[2025-09-02] MEDS: LORazepam 1 MG TAB PO (12:46)
--- NOTE | 2025-09-02 14:34 | PDOC.MHCN ---
Date of service: 09/02/25 Time of Service: 12:53 PHQ-9 Over the last 2 weeks, how often have you been bothered by any of the following problems? 1. Little interest or pleasure in doing things: several days 2. Feeling down, depressed, or hopeless: several days 3. Trouble falling or staying asleep, or sleeping too much: more than half the days 4. Feeling tired or having little energy: several days 5. Poor appetite or overeating: not at all 6. Feeling bad about yourself - or that you are a failure or have let yourself and your family down: nearly every day 7. Trouble concentrating on things, such as reading the newspaper or watching television: not at all 8. Moving or speaking so slowly that other people could have noticed? - Or the opposite - being so fidgety or restless that you have been moving around a lot more than usual: not at all 9. Thoughts that you would be better off or of hurting yourself in some way: not at all Total score: 8 If you checked off any problems, how difficult have these problems made it for you to do your work, take care of things at home, or get along with other people?: somewhat difficult Source: Developed by Drs. Lars Perez, Lanny Russell, Dimitrios Goff and colleagues, with an educational quentin from [employer]. Suicide Severity Rate CSSRS Have you wished you were or wished you could go to sleep and not wake up?: No Have you actually had any thoughts of killing yourself?: No CSSRS3 Have you ever done anything, started to do anything or prepared to do anything to end your life?: No Screening Score Total Score: 0 Screening: Negative Mental Health Emergency Note Release HS release signed:: Yes Reason for Visit The client presented to the [facility] ED experiencing a panic attack. The client is not known to [facility] or this commercial lines underwriter. The client self reports to never have been hospitalized in the past for her mental health. The client is supported by her therapist Rukhsana Dobson and [facility]. In the last 2 weeks has the pt presented for ES prior to today?: No Client Information Client is: New Well Housed: Yes Non Suicidal Self Injury Current: No History: No Safety Risk/Harm to Self or Others Current Ideation to Harm Self or Others: No CALM/Risk Level Does risk to harm exist?: No Risk: Low Risk Duty to warn indicated: No Asssessment/Mental Status Appearance: Disheveled Attitude: Cooperative and Friendly Behavior: Unremarkable Speech: Normal Affect: Cogruent with mood Mood: Other (The client reports her mood as helpless) Thought process: Goal directed Hallucinations: No Delusions: No Attention: Unremarkable Perception: Not impaired Orientation: Fully orientated Memory: Intact Insight: Good Judgement: Good Neurovegetative Symptoms Sleep: Decrease Appetitie: No change Interests: No change Energy: No change Libido: Not applicable Additional Issues: Assaultive/Threatening Behavior: No Medical Concerns: No Client engaged in active self harm w/weapon: No Threatening to run away: No Child reported abuse/neglect: No Voluntarily presenting for services: Yes Domestic violence is a concern: No Extreme Psychosis or extreme behavior is present: No Impression The client is a 70 year old biological female who resides in [place], [place] with her . The client presents in a disheveled appearance and is seen sitting in her hospital bed . Affect is congruent with mood and speech is in normal range. Client is friendly and cooperative with this clinician; they report their mood as helpless. Thought process appears to be goal directed. There are no delusions observed by this clinician. The client denies auditory and visual hallucinations. Cognitive assessment reveals orientation to person, place and time. The client reports living in an apartment attached to their house they sold to their son and his . The client states she feels like a scapegoat to her daughter in law and feels like she resents the relationship they have with their son. The client states sometimes her daughter in law can be sweet, but when things go wrong for her they go wrong for everyone else. The client states that her daughter in law reports that she is undiagnosed bipolar. The client states her daughter in law use to come to her for help and now she does not. The client reports recently her daughter laws mother and that her daughter in law was able to speak to her via phone before she passed. The client states her daughter in law was not on speaking terms with her parents prior to this and for good reason. The client reports her daughter in law has been lashing out on her and its been giving her anxiety which makes her feel like a failure. The client states she has experienced three panic attacks in the last week with all of this going on. The client states today she was supposed to meet with her therapist at 2pm that she was unable to make because of the panic attack and was directed to go to the [facility] ED by her therapist. The client stated she is going to check in with her therapist once discharged from the hospital. The client denied SI, HI and NSSI with no plan or intent. The client denied wanting to complete a safety plan with this clinician as she feels like she has everything she needs in place. The client was given [phone], [facility] and [facility] resources. Resources Reosurces reviewed and given:: 9[facility], [facility] and Other ([facility]) Plan/Disposition Recommended Disposition: Community resources. Plan: The client was discharged home and will follow up with her therapist via phone this afternoon. Reports/communication Outcome discussed with: ED/Personnel
== END 2025-09-02 13:29 | disposition home or self-care (01) ==
PROVIDERS: Emergency Provider Physician Assistant; PCP Nurse Practitioner Family
DX: F41.0 Panic disorder [episodic paroxysmal anxiety] (principal)
CPT/HCPCS: 99283 ×2; 00123; 93005; 96127; 93010